=== PATIENT | male | born 1955 | race Caucasian/White ===

== ENCOUNTER 2019-10-26 21:09 | Emergency (ER) | payer BC ==
[2019-10-26 21:32] VITALS: TEMP 100.4
[2019-10-26] MEDS ORDERED: ACETAMINOPHEN TAB 500 MG TAB PO STA (21:34)
--- NOTE | 2019-10-26 21:41 | ED ---
General Adult HPI - General Chief complaint: Shortness of Breath Stated complaint: Diff Breathing Time Seen by Provider: 10/26/19 21:20 Source: patient, EMS, RN notes reviewed, old records reviewed Mode of arrival: EMS - History of Present Illness Initial comments: This is a 64-year-old male presents emergency Department complaining that there is been a one hour history of some shortness of breath. Patient states she bent down to tie her shoe when he stood up he was lightheaded very short of breath and felt weak. Patient denies any chest pain. Patient denies any palpitations. Patient denies any fever chills or cough. Patient states he has been quarantining himself with 3 other people the other people have gone out in the last 6 weeks do shopping but other than that no one is gone anywhere. Patient denies any abdominal pain patient denies nausea vomiting diarrhea. Patient denies any conjunctivae the symptoms. Patient denies any numbness or weakness patient does complain of a mild headache at this time. - Related Data Home Medications Medication Instructions Recorded Confirmed Aspirin [Aspirin EC] 1,000 mg PO ONCE 10/26/19 10/26/19 Allergies Allergy/AdvReac Type Severity Reaction Status Date / Time No Known Allergies Allergy Verified 10/26/19 22:09 Review of Systems ROS Statement: Those systems with pertinent positive or pertinent negative responses have been documented in the HPI. ROS Other: All systems not noted in ROS Statement are negative. Past Medical History Past Medical History: Hypertension History of Any Multi-Drug Resistant Organisms: None Reported Past Surgical History: Back Surgery Past Psychological History: Anxiety Smoking Status: Former smoker Past Alcohol Use History: Occasional Past Drug Use History: None Reported General Exam - General Exam Comments Initial Comments: GENERAL: Patient is well-developed and well-nourished. Patient is nontoxic and well- hydrated and is in mild distress. ENT: Neck is soft and supple. No significant lymphadenopathy is noted. Oropharynx is clear. Moist mucous membranes. Neck has full range of motion without eliciting any pain. EYES: The sclera were anicteric and conjunctiva were pink and moist. Extraocular movements were intact and pupils were equal round and reactive to light. Eyelids were unremarkable. PULMONARY: Unlabored respirations. Good breath sounds bilaterally. No audible rales rhonchi or wheezing was noted. CARDIOVASCULAR: Patient is tachycardic at 150 beats a minute ABDOMEN: Soft and nontender with normal bowel sounds. SKIN: Skin is clear with no lesions or rashes and otherwise unremarkable. NEUROLOGIC: Patient is alert and oriented 3 cranial nerves II through XII are grossly intact motor and sensory are also intact MUSCULOSKELETAL: Normal extremities with adequate strength and full range of motion. No lower extremity swelling or edema. No calf tenderness. LYMPHATICS: No significant lymphadenopathy is noted PSYCHIATRIC: Normal psychiatric evaluation. Course Vital Signs 10/26/19 10/26/19 21:18 22:40 Temperature 100.4 F H Pulse Rate 146 H 137 H Respiratory 20 22 Rate Blood Pressure 130/91 154/108 O2 Sat by Pulse 92 L 98 Oximetry Medical Decision Making - Medical Decision Making EKG shows sinus tachycardia at 140 bpm DE interval 222 QRS is 94 Q-T intervals 270 QTC is 436. Patient's EKG shows no ST segment elevation or depression. Patient does have Q waves inferiorly. CT chest shows a large saddle emboli. I started the patient on high-dose heparin. I spoke with [facility] they accepted the transfer I transfer the patient. - Lab Data Result diagrams: 10/26/19 21:30 10/26/19 21:30 Lab Results 10/26/19 10/26/19 10/26/19 Range/Units 21:30 21:30 21:30 WBC 13.7 H (3.8-10.6) k/uL RBC 5.21 (4.30-5.90) m/uL Hgb 15.3 (13.0-17.5) gm/dL Hct 46.6 (39.0-53.0) % MCV 89.6 (80.0-100.0) fL MCH 29.3 (25.0-35.0) pg MCHC 32.7 (31.0-37.0) g/dL RDW 13.0 (11.5-15.5) % Plt Count 225 (150-450) k/uL Neutrophils % 78 % Lymphocytes % 14 % Monocytes % 4 % Eosinophils % 2 % Basophils % 0 % Neutrophils # 10.7 H (1.3-7.7) k/uL Lymphocytes # 1.9 (1.0-4.8) k/uL Monocytes # 0.6 (0-1.0) k/uL Eosinophils # 0.2 (0-0.7) k/uL Basophils # 0.0 (0-0.2) k/uL PT 10.8 (9.0-12.0) sec INR 1.0 (<1.2) APTT 23.0 (22.0-30.0) sec D-Dimer 14.35 H (<0.60) mg/L FEU Sodium 140 (137-145) mmol/L Potassium 4.5 (3.5-5.1) mmol/L Chloride 102 (98-107) mmol/L Carbon Dioxide 26 (22-30) mmol/L Anion Gap 12 mmol/L BUN 16 (9-20) mg/dL Creatinine 1.03 (0.66-1.25) mg/dL Est GFR (CKD-EPI)AfAm 90 (>60 ml/min/1.73 sqM) Est GFR (CKD-EPI)NonAf 78 (>60 ml/min/1.73 sqM) Glucose 178 H (74-99) mg/dL Plasma Lactic Acid Allan (0.7-2.0) mmol/L Calcium 9.2 (8.4-10.2) mg/dL Magnesium 2.0 (1.6-2.3) mg/dL Total Bilirubin 0.4 (0.2-1.3) mg/dL AST 65 H (17-59) U/L ALT 67 H (4-49) U/L Alkaline Phosphatase 123 (38-126) U/L Lactate Dehydrogenase 634 H (313-618) U/L C-Reactive Protein 27.4 H (<10.0) mg/L Total Protein 7.8 (6.3-8.2) g/dL Albumin 4.3 (3.5-5.0) g/dL Coronavirus (PCR) (Not Detectd) Influenza Type A RNA (Not Detectd) Influenza Type B (PCR) (Not Detectd) 10/26/19 10/26/19 Range/Units 21:30 21:57 WBC (3.8-10.6) k/uL RBC (4.30-5.90) m/uL Hgb (13.0-17.5) gm/dL Hct (39.0-53.0) % MCV (80.0-100.0) fL MCH (25.0-35.0) pg MCHC (31.0-37.0) g/dL RDW (11.5-15.5) % Plt Count (150-450) k/uL Neutrophils % % Lymphocytes % % Monocytes % % Eosinophils % % Basophils % % Neutrophils # (1.3-7.7) k/uL Lymphocytes # (1.0-4.8) k/uL Monocytes # (0-1.0) k/uL Eosinophils # (0-0.7) k/uL Basophils # (0-0.2) k/uL PT (9.0-12.0) sec INR (<1.2) APTT (22.0-30.0) sec D-Dimer (<0.60) mg/L FEU Sodium (137-145) mmol/L Potassium (3.5-5.1) mmol/L Chloride (98-107) mmol/L Carbon Dioxide (22-30) mmol/L Anion Gap mmol/L BUN (9-20) mg/dL Creatinine (0.66-1.25) mg/dL Est GFR (CKD-EPI)AfAm (>60 ml/min/1.73 sqM) Est GFR (CKD-EPI)NonAf (>60 ml/min/1.73 sqM) Glucose (74-99) mg/dL Plasma Lactic Acid Allan 2.9 H* (0.7-2.0) mmol/L Calcium (8.4-10.2) mg/dL Magnesium (1.6-2.3) mg/dL Total Bilirubin (0.2-1.3) mg/dL AST (17-59) U/L ALT (4-49) U/L Alkaline Phosphatase (38-126) U/L Lactate Dehydrogenase (313-618) U/L C-Reactive Protein (<10.0) mg/L Total Protein (6.3-8.2) g/dL Albumin (3.5-5.0) g/dL Coronavirus (PCR) Not Detected (Not Detectd) Influenza Type A RNA Not Detected (Not Detectd) Influenza Type B (PCR) Not Detected (Not Detectd) Critical Care Time Critical Care Time: Yes Total Critical Care Time: 35 Disposition Clinical Impression: Pulmonary embolism Disposition: OTHER INSTITUTION NOT DEFINED Referrals: None,Stated [Primary Care Provider] - 1-2 days Time of Disposition: 22:59 - Out of Hospital Transfer - Req. Specs Out of Hospital Transfer - Requested Specifics: Other [facility] ([facility])
[2019-10-26 21:43] LABS: Basophils % (A) 0 %; Eosinophils # (A) 0.2 k/uL (0-0.7); Eosinophils % (A) 2 %; HCT 46.6 % (39.0-53.0); HGB 15.3 gm/dL (13.0-17.5); Lymphocytes # (A) 1.9 k/uL (1.0-4.8); Lymphocytes % (A) 14 %; MCH 29.3 pg (25.0-35.0); MCHC 32.7 g/dL (31.0-37.0); MCV 89.6 fL (80.0-100.0); Mean Platelet Volume 7.7; Monocytes # (A) 0.6 k/uL (0-1.0); Monocytes % (A) 4 %; Neutrophils # (A) 10.7 k/uL (1.3-7.7); Neutrophils % (A) 78 %; Platelet Count 225 k/uL (150-450); RBC 5.21 m/uL (4.30-5.90); WBC 13.7 k/uL (3.8-10.6)
[2019-10-26 21:55] LABS: Albumin 4.3 g/dL (3.5-5.0); C Reactive Protein 27.4 mg/L (<10.0); Calcium 9.2 mg/dL (8.4-10.2); Potassium 4.5 mmol/L (3.5-5.1); Total Bilirubin 0.4 mg/dL (0.2-1.3); Total Protein 7.8 g/dL (6.3-8.2)
[2019-10-26 22:01] LABS: Prothrombin Time 10.8 sec (9.0-12.0)
[2019-10-26 22:07] LABS: D-Dimer 14.35 mg/L FEU (<0.60)
--- NOTE | 2019-10-26 22:36 | XR ---
EXAMINATION TYPE: XR chest 1V portable DATE OF EXAM: 10/26/2019 COMPARISON: None INDICATION: Covid pneumonia suspected, short of breath fever TECHNIQUE: Single frontal view of the chest is obtained. FINDINGS: The heart size is normal. The pulmonary vasculature is normal. The lungs are clear. No suspicious peripheral consolidations are evident. No focal consolidations are identified. IMPRESSION: 1. No acute radiographic pulmonary process.
[2019-10-26] MEDS ORDERED: HEPARIN SODIUM,PORCINE 10,000 UNIT/ML 1 ML VIAL IV ONE (22:54)
--- NOTE | 2019-10-26 22:59 | CT ---
CT CHEST FOR PULMONARY EMBOLISM. EXAMINATION TYPE: CT chest angio for PE DATE OF EXAM: 10/26/2019 INDICATION: pE CT DLP: 838 mGycm, Automated exposure control for dose reduction was used. CONTRAST: Patient injected with 100 mL of Isovue 370. COMPARISON: None TECHNIQUE: CT of the chest is performed on a spiral scan at 2 mm thick sections. Study is performed with intravenous contrast timed for evaluation for pulmonary embolism. This will limit additional po rtions of the evaluation. FINDINGS: Large saddle embolus is present with extension in the proximal bilateral pulmonary arteries. There ma y be 2 individual strands crossing the bifurcation of the main pulmonary artery with large emboli obs tructing the proximal pulmonary branches bilaterally. Report was called to Dr. Campbell by Dr. Moran by telephone [id number] hours 10/26/2019. No mediastinal or hilar adenopathy enlarged by CT criteria is evident. The ascending aorta diameter at the level of the main pulmonary artery is 4.3 cm. The main pulmonary artery diameter at the bifur cation is 3.2 cm. Lung windows are clear. No suspicious infiltrates or groundglass opacities are identified. Limited CT section through the upper abdomen are unremarkable. IMPRESSIONS: 1. 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 2. Ascending thoracic aortic aneurysm measuring 4.3 cm.
[2019-10-26] MEDS ORDERED: HEPARIN SOD,PORK IN 0.45% NACL 25,000 UNIT in 0.45% NACL 1 250ML.BAG IV SCH (23:00)
[2019-10-26 23:26] VITALS: BP 133/104; PULSE 133; RESP 20
[2019-10-27 03:08] LABS: Ferritin 400.1 ng/mL (22.0-322.0)
== END 2019-10-26 23:32 | disposition other institution (70) ==
LOC: EC 21:09
DX: Z03.818 Encounter for observation for suspected exposure to other biological agents ruled out (principal); I26.92 Saddle embolus of pulmonary artery without acute cor pulmonale; I10 Essential (primary) hypertension; Z79.82 Long term (current) use of aspirin; Z87.891 Personal history of nicotine dependence
CPT/HCPCS: 36415; 93005; 85379; 80053; 82728; 83605; 83615; 83735; 85025; 85610; 85730; 86140; 87040; 87502; 84145; 87635; 71045; 71275; 99291; J1644 ×2; Q9967

== ENCOUNTER 2019-11-12 12:05 | Inpatient (IN) | payer BC ==
--- NOTE | 2019-11-12 12:43 | ED ---
General Adult HPI - General Chief complaint: Dizziness Stated complaint: headache/ears ringing Time Seen by Provider: 11/12/19 12:05 Source: patient, RN notes reviewed, old records reviewed Mode of arrival: ambulatory Limitations: no limitations - History of Present Illness Initial comments: This is a 64-year-old male who was recently diagnosed with a pulmonary embolism. Patient had the also has a DVT in his left leg he states that he is on Xarelto. Patient comes in today because ever since he was discharged from the hospital 2 weeks ago he has been getting intermittent headaches and when he gets those he becomes very dizzy. Patient states he also had some ringing in the ears since that occurred. Patient states the dizziness feels as though is off balance not like he is going to pass out. Patient also states that the dizziness sometimes seems to begin after he bends over to pick something up. Patient denies any chest pain or palpitations. Patient denies any shortness of breath or difficulty breathing. Patient denies any fever chills or cough. Patient denies any abdominal pain patient denies nausea vomiting diarrhea. Patient denies any leg swelling or calf tenderness - Related Data Home Medications Medication Instructions Recorded Confirmed Rivaroxaban [Xarelto Starter Pack] See Taper PO DIRECTED 11/12/19 11/12/19 Allergies Allergy/AdvReac Type Severity Reaction Status Date / Time No Known Allergies Allergy Verified 11/12/19 13:57 Review of Systems ROS Statement: Those systems with pertinent positive or pertinent negative responses have been documented in the HPI. ROS Other: All systems not noted in ROS Statement are negative. Past Medical History Past Medical History: Hypertension, Pulmonary Embolus (PE) History of Any Multi-Drug Resistant Organisms: None Reported Past Surgical History: Back Surgery Additional Past Surgical History / Comment(s): cervial fusion Past Psychological History: Anxiety Smoking Status: Former smoker Past Alcohol Use History: Occasional Past Drug Use History: None Reported General Exam - General Exam Comments Initial Comments: GENERAL: Patient is well-developed and well-nourished. Patient is nontoxic and well- hydrated and is in mild distress. ENT: Neck is soft and supple. No significant lymphadenopathy is noted. Oropharynx is clear. Moist mucous membranes. Neck has full range of motion without eliciting any pain. EYES: The sclera were anicteric and conjunctiva were pink and moist. Extraocular movements were intact and pupils were equal round and reactive to light. Eyelids were unremarkable. PULMONARY: Unlabored respirations. Good breath sounds bilaterally. No audible rales rhonchi or wheezing was noted. CARDIOVASCULAR: Patient is tachycardic at 110 bpm ABDOMEN: Soft and nontender with normal bowel sounds. No palpable organomegaly was noted. There is no palpable pulsatile mass. SKIN: Skin is clear with no lesions or rashes and otherwise unremarkable. NEUROLOGIC: Patient is alert and oriented x3. Cranial nerves II through XII are grossly intact. Motor and sensory are also intact. Normal speech, volume and content. Symmetrical smile. MUSCULOSKELETAL: Normal extremities with adequate strength and full range of motion. No lower extremity swelling or edema. No calf tenderness. LYMPHATICS: No significant lymphadenopathy is noted PSYCHIATRIC: Normal psychiatric evaluation. Limitations: no limitations Course Vital Signs 11/12/19 11/12/19 11/12/19 12:07 12:35 13:00 Temperature 98 F Pulse Rate 112 H 108 H 101 H Pulse Rate [ Sitting Visual Basic Programmer] Pulse Rate [ Standing Visual Basic Programmer ] Pulse Rate [ Supine Visual Basic Programmer] Respiratory 18 25 H 18 Rate Blood Pressure 150/107 141/91 Blood Pressure [Sitting] Blood Pressure [Standing] Blood Pressure [Supine] O2 Sat by Pulse 99 95 Oximetry 11/12/19 11/12/19 11/12/19 13:21 13:30 14:00 Temperature Pulse Rate 95 90 Pulse Rate [ 111 H Sitting Visual Basic Programmer] Pulse Rate [ 120 H Standing Visual Basic Programmer ] Pulse Rate [ 96 Supine Visual Basic Programmer] Respiratory 20 20 17 Rate Blood Pressure 111/85 122/84 Blood Pressure 104/84 [Sitting] Blood Pressure 111/85 [Standing] Blood Pressure 115/81 [Supine] O2 Sat by Pulse 95 95 Oximetry Medical Decision Making - Medical Decision Making EKG shows sinus tachycardia at 101 bpm NM interval 252 QRS is 94 QT interval 346 QTC is 448. EKG shows no ST segment elevation or depression CT of the brain shows no acute abnormality. I will begin to reevaluate the patient he states he just had another one of his severe headaches which is not completely gone but much improved compared to where it was a little while ago. I spoke with Dr. Oviedo he agreed to admit the patient admitted the patient wro te admitting orders. - Lab Data Result diagrams: 11/12/19 12:50 11/12/19 12:50 Lab Results 05/04/2311/12/19 11/12/19 Range/Units 12:50 12:50 12:50 WBC 7.7 (3.8-10.6) k/uL RBC 5.56 (4.30-5.90) m/uL Hgb 16.0 (13.0-17.5) gm/dL Hct 48.8 (39.0-53.0) % MCV 87.8 (80.0-100.0) fL MCH 28.8 (25.0-35.0) pg MCHC 32.8 (31.0-37.0) g/dL RDW 13.0 (11.5-15.5) % Plt Count 234 (150-450) k/uL Neutrophils % 75 % Lymphocytes % 17 % Monocytes % 5 % Eosinophils % 1 % Basophils % 0 % Neutrophils # 5.8 (1.3-7.7) k/uL Lymphocytes # 1.3 (1.0-4.8) k/uL Monocytes # 0.4 (0-1.0) k/uL Eosinophils # 0.1 (0-0.7) k/uL Basophils # 0.0 (0-0.2) k/uL PT 12.6 H (9.0-12.0) sec INR 1.2 H (<1.2) APTT 29.3 (22.0-30.0) sec Sodium 139 (137-145) mmol/L Potassium 4.3 (3.5-5.1) mmol/L Chloride 104 (98-107) mmol/L Carbon Dioxide 24 (22-30) mmol/L Anion Gap 11 mmol/L BUN 13 (9-20) mg/dL Creatinine 0.91 (0.66-1.25) mg/dL Est GFR (CKD-EPI)AfAm >90 (>60 ml/min/1.73 sqM) Est GFR (CKD-EPI)NonAf >90 (>60 ml/min/1.73 sqM) Glucose 123 H (74-99) mg/dL Calcium 9.6 (8.4-10.2) mg/dL Magnesium 2.0 (1.6-2.3) mg/dL Total Bilirubin 0.7 (0.2-1.3) mg/dL AST 28 (17-59) U/L ALT 33 (4-49) U/L Alkaline Phosphatase 102 (38-126) U/L Troponin I (0.000-0.034) ng/mL Total Protein 8.2 (6.3-8.2) g/dL Albumin 4.3 (3.5-5.0) g/dL 11/12/19 Range/Units 12:50 WBC (3.8-10.6) k/uL RBC (4.30-5.90) m/uL Hgb (13.0-17.5) gm/dL Hct (39.0-53.0) % MCV (80.0-100.0) fL MCH (25.0-35.0) pg MCHC (31.0-37.0) g/dL RDW (11.5-15.5) % Plt Count (150-450) k/uL Neutrophils % % Lymphocytes % % Monocytes % % Eosinophils % % Basophils % % Neutrophils # (1.3-7.7) k/uL Lymphocytes # (1.0-4.8) k/uL Monocytes # (0-1.0) k/uL Eosinophils # (0-0.7) k/uL Basophils # (0-0.2) k/uL PT (9.0-12.0) sec INR (<1.2) APTT (22.0-30.0) sec Sodium (137-145) mmol/L Potassium (3.5-5.1) mmol/L Chloride (98-107) mmol/L Carbon Dioxide (22-30) mmol/L Anion Gap mmol/L BUN (9-20) mg/dL Creatinine (0.66-1.25) mg/dL Est GFR (CKD-EPI)AfAm (>60 ml/min/1.73 sqM) Est GFR (CKD-EPI)NonAf (>60 ml/min/1.73 sqM) Glucose (74-99) mg/dL Calcium (8.4-10.2) mg/dL Magnesium (1.6-2.3) mg/dL Total Bilirubin (0.2-1.3) mg/dL AST (17-59) U/L ALT (4-49) U/L Alkaline Phosphatase (38-126) U/L Troponin I <0.012 (0.000-0.034) ng/mL Total Protein (6.3-8.2) g/dL Albumin (3.5-5.0) g/dL Disposition Clinical Impression: Dizziness, Intermittent headache Disposition: ADMITTED IP TO THIS HOSP Referrals: None,Stated [Primary Care Provider] - 1-2 days Time of Disposition: 14:45
--- NOTE | 2019-11-12 13:04 | CT ---
EXAMINATION TYPE: CT brain wo con DATE OF EXAM: 11/12/2019 COMPARISON: NONE HISTORY: headache, dizziness CT DLP: 1099.4 mGycm Automated exposure control for dose reduction was used. FINDINGS: Central structures are midline. There is no evidence of hydrocephalus. No acute focal lesion, mass ef fect or midline shift is seen. I do not see evidence of intracranial blood Visualized portions of the paranasal sinuses and mastoids are clear. The bony calvarium is intact. IMPRESSION: NO ACUTE INTRACRANIAL ABNORMALITY.
[2019-11-12 13:15] LABS: Basophils % (A) 0 %; Eosinophils # (A) 0.1 k/uL (0-0.7); Eosinophils % (A) 1 %; HCT 48.8 % (39.0-53.0); Lymphocytes # (A) 1.3 k/uL (1.0-4.8); Lymphocytes % (A) 17 %; MCH 28.8 pg (25.0-35.0); MCHC 32.8 g/dL (31.0-37.0); MCV 87.8 fL (80.0-100.0); Monocytes # (A) 0.4 k/uL (0-1.0); Monocytes % (A) 5 %; Neutrophils # (A) 5.8 k/uL (1.3-7.7); Neutrophils % (A) 75 %; Platelet Count 234 k/uL (150-450); RBC 5.56 m/uL (4.30-5.90); WBC 7.7 k/uL (3.8-10.6)
[2019-11-12 13:27] LABS: ALT 33 U/L (4-49); AST 28 U/L (17-59); African American GFR (CKD) >90 (>60 ml/min/1.73 sqM); Albumin 4.3 g/dL (3.5-5.0); Alkaline Phosphatase 102 U/L (38-126); Anion Gap 11 mmol/L; Blood Urea Nitrogen 13 mg/dL (9-20); Calcium 9.6 mg/dL (8.4-10.2); Carbon Dioxide 24 mmol/L (22-30); Chloride 104 mmol/L (98-107); Glucose 123 mg/dL (74-99); INR 1.2 (<1.2); Non-African American GFR(CKD) >90 (>60 ml/min/1.73 sqM); Partial Thromboplastin Time 29.3 sec (22.0-30.0); Potassium 4.3 mmol/L (3.5-5.1); Prothrombin Time 12.6 sec (9.0-12.0); Sodium 139 mmol/L (137-145); Total Bilirubin 0.7 mg/dL (0.2-1.3); Total Protein 8.2 g/dL (6.3-8.2)
[2019-11-12] MEDS ORDERED: MECLIZINE 25 MG TAB PO STA (13:53)
[2019-11-12] MEDS ORDERED: SODIUM CHLORIDE 0.9% 1,000 ML IV STA (13:57)
[2019-11-12] MEDS ORDERED: SODIUM CHLORIDE 0.9% 1,000 ML IV ONE (14:45)
[2019-11-12] MEDS ORDERED: MECLIZINE 25 MG TAB PO PRN (14:47)
--- NOTE | 2019-11-12 15:38 | P.HPIM ---
History of Present Illness H&P Date: 11/12/19 Chief Complaint: Dizziness Patient is a 64-year-old male with a known history of recently diagnosed saddle pulmonary embolism in the ER and was sent to [facility] about 2 weeks ago where he had clot extraction, currently on anticoagulation with starter pack of xarelto came to ER with complaints of dizziness and lightheadedness. Ever since he he was sent home she has been having dizziness and not feeling well. She has been having headaches and also bleeding in the years and sometimes tingling in sensation in the feet. His symptoms gets worse when he is bending over. No complaints of chest pain or shortness of breath. Denied palpitations. No leg swelling. Patient states that dizziness feels like he is losing balance and going to pass out. Dizziness sometimes begins after bending over to pick something. Denied any fever or chills. No cough or sputum production. No nausea vomiting or abdominal pain. No diarrhea. No Tenderness. Patient has been taking xarelto since his discharge from hospital. Patient says that she was told that she was hypertensive during hospital admission recently but currently not any antihypertensives. EKG showed sinus tachycardia with incomplete right bundle branch block. CT head showed no acute intracranial abnormality. Orthostatic vitals negative. Patient did have tachycardia with heart rate went up to 120s with standing. Troponin 1 negative Review of Systems Constitutional: Patient denies any fever or chills . No generalized weakness or weight loss. Abdomen: Patient denied nausea vomiting and diarrhea and abdominal pain. Cardiovascular: Patient denies any chest pain or short of breath no palpitations. Respiratory: patient denied any cough is from production. No shortness of breath Neurologic: Patient denied any numbness or tingling. Patient does have dizziness and headache and ringing ears. Musculoskeletal: Patient denies any complaints of joint swelling or deformity. Skin: Negative Psychiatric: Negative Endocrine: No heat or cold intolerance. No recent weight gain. Genitourinary: No dysuria or hematuria. All other 14 point ROS negative except the above Past Medical History Past Medical History: Hypertension, Pulmonary Embolus (PE) History of Any Multi-Drug Resistant Organisms: None Reported Past Surgical History: Back Surgery Additional Past Surgical History / Comment(s): cervial fusion Past Psychological History: Anxiety Smoking Status: Former smoker Past Alcohol Use History: Occasional Past Drug Use History: None Reported Medications and Allergies Home Medications Medication Instructions Recorded Confirmed Type Rivaroxaban [Xarelto Starter Pack] See Taper PO DIRECTED 11/12/19 11/12/19 History Allergies Allergy/AdvReac Type Severity Reaction Status Date / Time No Known Allergies Allergy Verified 11/12/19 13:57 Physical Exam Vitals: Vital Signs Temp Pulse Pulse Pulse Pulse Resp BP 11/12/19 14:00 90 17 122/84 11/12/19 13:30 95 20 111/85 11/12/19 13:21 111 H 120 H 96 20 11/12/19 13:00 101 H 18 141/91 11/12/19 12:35 108 H 25 H 11/12/19 12:07 98 F 112 H 18 150/107 BP BP BP Pulse Ox 11/12/19 14:00 95 11/12/19 13:30 95 11/12/19 13:21 104/84 111/85 115/81 11/12/19 13:00 95 11/12/19 12:35 11/12/19 12:07 99 Intake and Output 11/12/19 11/12/19 11/12/19 06:59 14:59 22:59 Other: Weight 126.552 kg PHYSICAL EXAMINATION: Patient is lying in the bed comfortably, no acute distress, awake alert and oriented.. HEENT: Normocephalic. Neck is supple. Pupils reactive. Nostrils clear. Oral cavity is moist. Ears reveal no drainage. Neck reveals no JVD, carotid bruits, or thyromegaly. CHEST EXAMINATION: Trachea is central. Symmetrical expansion. Lung morton clear to auscultation and percussion. CARDIAC: Normal S1, S2 with no gallops. No murmurs ABDOMEN: Soft. Bowel sounds normal. No organomegaly. No abdominal bruits. Extremities: reveal no edema. No clubbing or cyanosis Neurologically awake, alert, oriented x3 with well-coordinated movements. No focal deficits noted Skin: No rash or skin lesions. Psychiatric: Coperative. Nonsuicidal Musculoskeletal: No joint swelling or deformity. Normal range of motion. Results CBC & Chem 7: 11/12/19 12:50 11/12/19 12:50 Labs: Abnormal Lab Results - Last 24 Hours (Table) 11/12/19 11/12/19 Range/Units 12:50 12:50 PT 12.6 H (9.0-12.0) sec INR 1.2 H (<1.2) Glucose 123 H (74-99) mg/dL Thrombosis Risk Factor Assmnt - DVT/VTE Prophylaxis DVT/VTE Prophylaxis: Pharmacologic Prophylaxis ordered Assessment and Plan Assessment: Dizziness and headache with postural tachycardia Recent saddle pulmonary embolus status post extraction at [facility]. History of neck surgery Hypertension recent diagnosis. Currently not on any medications. Anxiety Previous history of smoking DVT prophylaxis patient is already on xarelto. Plan: Patient will be continued on gentle hydration. Continue with telemetry monitoring. Troponin [address] head showed no acute intracranial process. Cardiology and neurology will be consulted. Further recommendations based on the clinical course. Continue with anticoagulation to xarelto, 15 mg twice a day for 3 weeks followed by 20 mg daily. Time with Patient: Greater than 30
--- NOTE | 2019-11-12 16:43 | XR ---
EXAMINATION TYPE: XR chest 1V DATE OF EXAM: 11/12/2019 COMPARISON: Prior chest x-ray 10/26/2019 HISTORY: Cardiomegaly TECHNIQUE: Single frontal view of the chest is obtained. FINDINGS: There is no focal air space opacity, pleural effusion, or pneumothorax seen. The cardiac silhouette size is stable. The osseous structures are intact, postop changes again noted at these l ower cervical spine. Persistent elevation of the right hemidiaphragm noted. IMPRESSION: No acute process.
[2019-11-12] MEDS: RIVAROXABAN 15 MG TAB PO SCH (17:27)
[2019-11-13] MEDS: RIVAROXABAN 15 MG TAB PO SCH ×2 (07:47→17:11)
--- NOTE | 2019-11-13 11:12 | P.CRDCN ---
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 He follows in the office with Dr. Bolanos. We have been asked to see in consultation for dizziness. He states he has experiencing intermittent headaches and dizziness for the previous 2 weeks. The dizziness is exacerbated by bending over. On October 26, 2019 he was diagnosed with a saddle PE and transferred to [facility] where EKOS was used and xarelto was initiated on discharge. He denies chest pain, shortness of breath or palpitations. Orthostatic blood pressures checked and unremarkable. DIAGNOSTICS EKG reveals sinus tachycardia with right bundle branch block. Telemetry tracings unremarkable. Chest xray negative for an acute cardiopulmonary process. CT brain unremarkable for acute intracranial process. Laboratory reviewed, CBC unremarkable, INR 1.2, sodium 139, potssium 4.3, creatinine 0.91, magnesium 2.0, cardiac enzymes negative x1 and COVD negative. REVIEW OF SYSTEMS At the time of my exam: CONSTITUTIONAL: Denies fever or chills. CARDIOVASCULAR: Denies chest pain, shortness of breath, orthopnea, PND or palpitations. RESPIRATORY: Denies cough. GASTROINTESTINAL: Denies abdominal pain, diarrhea, constipation, nausea or vomiting. MUSCULOSKELETAL: Denies myalgias. NEUROLOGIC: Denies numbness, tingling or weakness. ENDOCRINE: Denies fatigue, weight change, polydipsia or polyurina. GENITOURINARY: Denies burning, hematuria or urgency with micturation. HEMATOLOGIC: Denies history of anemia or bleeding. PHYSICAL EXAMINATION Blood pressure 134/83 heart rate 75 afebrile and maintaining oxygen saturation on room air. CONSTITUTIONAL: No apparent distress. HEENT: Head is normocephalic. Pupils are equal, round. Sclerae anicteric. Mucous membranes of the mouth are moist. No JVD. No carotid bruit. CHEST EXAMINATION: Lungs are clear to auscultation. No chest wall tenderness is noted on palpation or with deep breathing. HEART EXAMINATION: Regular rate and rhythm. S1, S2 heard. No murmurs, gallops or rub. ABDOMEN: Soft, nontender. Positive bowel sounds. EXTREMITIES: 2+ peripheral pulses, no lower extremity edema and no calf tenderness. NEUROLOGIC EXAMINATION: Patient is awake, alert and oriented x3. ASSESSMENT Dizziness suggestive of vertigo History of recent saddle PE s/p EKOS Former nicotine dependence PLAN Continue antivert as previously ordered. He is feeling some improvement in his symptoms since admission. Neurology evaluation pending. No orthostatic changes or evidence of an acute arrhythmia. Thank you kindly for this consultation. Nurse Practitioner note has been reviewed, I agree with a documented findings and plan of care. Patient was seen and examined. Past Medical History Past Medical History: Hypertension, Pulmonary Embolus (PE) History of Any Multi-Drug Resistant Organisms: None Reported Past Surgical History: Back Surgery Additional Past Surgical History / Comment(s): cervial fusion Past Anesthesia/Blood Transfusion Reactions: No Reported Reaction Past Psychological History: Anxiety Smoking Status: Former smoker Past Alcohol Use History: Occasional Past Drug Use History: None Reported - Past Family History Mother Family Medical History: Coronary Artery Disease (CAD), Diabetes Mellitus, Hypertension Medications and Allergies Home Medications Medication Instructions Recorded Confirmed Type Rivaroxaban [Xarelto Starter Pack] See Taper PO DIRECTED 11/12/19 11/12/19 History Allergies Allergy/AdvReac Type Severity Reaction Status Date / Time No Known Allergies Allergy Verified 11/12/19 13:57 Physical Exam Vitals: Vital Signs Temp Pulse Pulse Pulse Pulse Pulse Resp 11/13/19 07:35 97.7 F 75 16 11/13/19 04:33 74 20 11/13/19 02:15 98.3 F 71 20 11/12/19 19:35 98.3 F 82 20 11/12/19 16:00 104 H 18 11/12/19 15:51 98.0 F 104 H 18 11/12/19 15:40 98.0 F 94 18 11/12/19 14:00 90 17 11/12/19 13:30 95 20 11/12/19 13:21 111 H 120 H 96 20 11/12/19 13:00 101 H 18 11/12/19 12:35 108 H 25 H 11/12/19 12:07 98 F 112 H 18 BP BP BP BP BP BP BP 11/13/19 07:35 134/83 11/13/19 04:33 107/72 114/81 125/79 11/13/19 02:15 142/81 11/12/19 19:35 147/90 11/12/19 16:00 11/12/19 15:51 151/95 11/12/19 15:40 136/78 11/12/19 14:00 122/84 11/12/19 13:30 111/85 11/12/19 13:21 104/84 111/85 11/12/19 13:00 141/91 11/12/19 12:35 11/12/19 12:07 150/107 BP Pulse Ox 11/13/19 07:35 96 11/13/19 04:33 97 11/13/19 02:15 95 11/12/19 19:35 94 L 11/12/19 16:00 11/12/19 15:51 98 11/12/19 15:40 98 11/12/19 14:00 95 11/12/19 13:30 95 11/12/19 13:21 115/81 11/12/19 13:00 95 11/12/19 12:35 11/12/19 12:07 99 Intake and Output 11/12/19 11/13/19 11/13/19 22:59 06:59 14:59 Intake Total 200 Balance 200 Intake: Oral 200 Other: Voiding Method Toilet Toilet # Voids 2 2 1 Weight 126.552 kg Results 11/12/19 12:50 11/12/19 12:50 Cardiac Enzymes 11/12/19 11/12/19 Range/Units 12:50 12:50 AST 28 (17-59) U/L Troponin I <0.012 (0.000-0.034) ng/mL Coagulation 11/12/19 Range/Units 12:50 PT 12.6 H (9.0-12.0) sec APTT 29.3 (22.0-30.0) sec CBC 11/12/19 Range/Units 12:50 WBC 7.7 (3.8-10.6) k/uL RBC 5.56 (4.30-5.90) m/uL Hgb 16.0 (13.0-17.5) gm/dL Hct 48.8 (39.0-53.0) % Plt Count 234 (150-450) k/uL Comprehensive Metabolic Panel 11/12/19 Range/Units 12:50 Sodium 139 (137-145) mmol/L Potassium 4.3 (3.5-5.1) mmol/L Chloride 104 (98-107) mmol/L Carbon Dioxide 24 (22-30) mmol/L BUN 13 (9-20) mg/dL Creatinine 0.91 (0.66-1.25) mg/dL Glucose 123 H (74-99) mg/dL Calcium 9.6 (8.4-10.2) mg/dL AST 28 (17-59) U/L ALT 33 (4-49) U/L Alkaline Phosphatase 102 (38-126) U/L Total Protein 8.2 (6.3-8.2) g/dL Albumin 4.3 (3.5-5.0) g/dL Current Medications Generic Name Dose Route Start Last Admin Trade Name Freq PRN Reason Stop Dose Admin Meclizine HCl 25 mg 11/12/19 14:47 Antivert PO TID PRN Vertigo Rivaroxaban 15 mg 11/12/19 17:30 11/13/19 07:47 Xarelto PO 11/17/19 17:31 15 mg BID-W/MEALS BRUCE Administration Rivaroxaban 20 mg 11/18/19 17:30 11/12/19 16:46 Xarelto PO 20 mg W/SUPPER BRUCE Administration Intake and Output 11/12/19 11/13/19 11/13/19 22:59 06:59 14:59 Intake Total 200 Balance 200 Intake: Oral 200 Other: Voiding Method Toilet Toilet # Voids 2 2 1 Weight 126.552 kg 11/12/19 12:50 11/12/19 12:50
--- NOTE | 2019-11-13 15:55 | P.CNNES ---
History of Present Illness Consult date: 11/13/19 Requesting physician: Katarina Oviedo Reason for Consult: Dizziness History of Present Illness: Patient is a 64-year-old male, who was recently admitted to the hospital on 10/26/2019 for a saddle embolus, for which she was transferred to [facility], patient was given thrombolytic, and discharged home on 10/28/2019. Patient states that after he was discharged, he was feeling generalized weakness. About couple days after he was discharged, he started having episodes of dizziness and headache. 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 Or if he is laying in the bed, and gets up, gets dizzy. It lasts until he sits down. Yesterday he woke up, and noticed had bad pounding global headache with tinnitus generalized weakness dizziness and vertigo. He forced himself to take shower. As the dizziness and headache persisted, he decided to come to the ER. Denies any numbness or tingling. It lasted all day. The headache is global. No nausea or vomiting, light or noise sensitivity. Patient denies any history of migraines. The headache and dizziness comes together. CT head showed no acute intracranial abnormality. I reviewed computed tomography scan of the head. All visualized paranasal sinuses are completely clear. External auditory canals appears very clear with no excessive cerumen. EKG shows sinus tachycardia, incomplete right bundle branch block. Left anterior fascicular block. Chest x-ray showed no acute process. CBC and CMP are normal. Cummings virus PCR negative. Patient had a CTA of chest on 10/26/2019, which revealed saddle embolism with obstruction of proximal bi lateral pulmonary arteries. Patient is on Xarelto. Patient has history of cervical surgery at [facility] in 2018. After that he had constant numbness of the index and middle finger of the left hand. Patient denies diabetes. He has hypertension. He has smoked 1 pack per day for 15 years, quit 25 years ago. Positive family history of diabetes. He is retired from [employer]. Patient denies any upper respiratory infection. Today he is noticing some dizziness. Patient denies any slurred speech, facial droop, blurred vision, diplopia. No numbness or tingling or weakness of the extremities. Review of Systems As mentioned above in detail. All other 14 point of review of systems unremarkable. No chest pain shortness of breath wheezing or cough. No abdominal pain nausea vomiting diarrhea. Past Medical History Past Medical History: Hypertension, Pulmonary Embolus (PE) History of Any Multi-Drug Resistant Organisms: None Reported Past Surgical History: Back Surgery Additional Past Surgical History / Comment(s): cervial fusion Past Anesthesia/Blood Transfusion Reactions: No Reported Reaction Past Psychological History: Anxiety Smoking Status: Former smoker Past Alcohol Use History: Occasional Past Drug Use History: None Reported - Past Family History Mother Family Medical History: Coronary Artery Disease (CAD), Diabetes Mellitus, Hypertension Medications and Allergies Home Medications Medication Instructions Recorded Confirmed Type Rivaroxaban [Xarelto Starter Pack] See Taper PO DIRECTED 11/12/19 11/12/19 History Allergies Allergy/AdvReac Type Severity Reaction Status Date / Time No Known Allergies Allergy Verified 11/12/19 13:57 Physical Examination - Vital Signs Vital Signs: Vital Signs Temp Pulse Pulse Pulse Pulse Pulse Resp 11/13/19 07:35 97.7 F 75 16 11/13/19 04:33 74 20 11/13/19 02:15 98.3 F 71 20 11/12/19 19:35 98.3 F 82 20 11/12/19 16:00 104 H 18 11/12/19 15:51 98.0 F 104 H 18 11/12/19 15:40 98.0 F 94 18 11/12/19 14:00 90 17 11/12/19 13:30 95 20 11/12/19 13:21 111 H 120 H 96 20 11/12/19 13:00 101 H 18 11/12/19 12:35 108 H 25 H 11/12/19 12:07 98 F 112 H 18 BP BP BP BP BP BP BP 11/13/19 07:35 134/83 11/13/19 04:33 107/72 114/81 125/79 11/13/19 02:15 142/81 11/12/19 19:35 147/90 11/12/19 16:00 11/12/19 15:51 151/95 11/12/19 15:40 136/78 11/12/19 14:00 122/84 11/12/19 13:30 111/85 11/12/19 13:21 104/84 111/85 11/12/19 13:00 141/91 11/12/19 12:35 11/12/19 12:07 150/107 BP Pulse Ox 11/13/19 07:35 96 11/13/19 04:33 97 11/13/19 02:15 95 11/12/19 19:35 94 L 11/12/19 16:00 11/12/19 15:51 98 11/12/19 15:40 98 11/12/19 14:00 95 11/12/19 13:30 95 11/12/19 13:21 115/81 11/12/19 13:00 95 11/12/19 12:35 11/12/19 12:07 99 Intake and Output 11/12/19 11/13/19 11/13/19 22:59 06:59 14:59 Intake Total 200 Balance 200 Intake: Oral 200 Other: Voiding Method Toilet Toilet # Voids 2 2 1 Weight 126.552 kg Patient's vitals were checked, and his supine blood pressure 1:15/81, pulse rate 92. Sitting was 104/84 with pulse of 90 and standing up 111/85 pulse of 93. There is no carotid bruit, S1 and S2 audible. His mental status, speech and language functions are normal. Attention, concentration and fund of knowledge is adequate. On cranial nerve examination, pupils are round and reactive to light, visual morton are full, extraocular muscles are intact with no nystagmus. Face is symmetric, tongue protrudes the midline. Palatal elevation and sensation normal. Hearing and shoulder shrug normal. On muscle strength testing, there is no pronator drift and the strength is normal in arms and legs distally and proximally. Reflexes are 2 in the upper limbs, 1 at the ankles and plantars downgoing bilaterally. Sensory touch is equal. No ataxia for [id number] or [id number] testing. Tone and bulk of muscles normal. Gait deferred. Abdomen is soft nontender, chest is clear. Results TSH is normal 2.18. CRP 27.4 liver functions normal. - Laboratory Findings CBC and BMP: 11/12/19 12:50 11/12/19 12:50 Abnormal Lab Findings: Abnormal Labs 11/12/19 11/12/19 12:50 12:50 PT 12.6 H INR 1.2 H Glucose 123 H Assessment and Plan Assessment: * 64-year-old male admitted with intermittent episodes of headaches, vertigo, mainly occurring on changing his head or body position, either looking/bending down, or getting up. Orthostatics were negative. Symptoms suggestive of possible BPPV. Current neurological examination and computed tomography scan of the head are normal. * Recent history of saddle pulmonary embolism, DVT, on anticoagulation. * Hypertension * X tobacco use. Plan: * We will check carotid Doppler to rule out carotid stenosis and a 2-D echo with bubble study to rule out any embolic source. Patient is already on Xarelto. * If the symptoms persist, consider vestibular rehabilitation. * Meclizine use sparingly. * We will check B12, folate
--- NOTE | 2019-11-13 17:01 | US ---
EXAMINATION TYPE: US carotid duplex BILAT DATE OF EXAM: 11/13/2019 COMPARISON: NONE CLINICAL HISTORY: Agree current headache, vertigo, rule out TIA. Headaches, dizziness, exam done port able. EXAM MEASUREMENTS: RIGHT: Peak Systolic Velocity (PSV) cm/sec ----- Right CCA: 63.2 ----- Right ICA: 58.1 ----- Right ECA: 75.6 ICA/CCA ratio: 0.9 RIGHT: End Diastole cm/sec ----- Right CCA: 15.7 ----- Right ICA: 18.0 ----- Right ECA: 11.0 LEFT: Peak Systolic Velocity (PSV) cm/sec ----- Left CCA: 66.8 ----- Left ICA: 57.9 ----- Left ECA: 92.1 ICA/CCA ratio: 0.9 LEFT: End Diastole cm/sec ----- Left CCA: 18.8 ----- Left ICA: 24.7 ----- Left ECA: 14.0 VERTEBRALS (direction of flow): Right Vertebral: Antegrade Left Vertebral: Antegrade Rhythm: Normal Grayscale images show mild to minimal eccentric plaque bilateral carotid bulb level. Velocity measure ments of ratios remain within normal limits in the visualized portion of both internal carotid arteri es. IMPRESSION: No hemodynamically significant stenosis seen in either internal carotid artery. Criteria for Assigning % of Stenosis / Diameter reduction (Estimation based on the indirect measurements of the internal carotid artery velocities (ICA PSV). 1. Normal (no stenosis)=ICA PSV < 125 cm/s: ratio < 2.0: ICA EDV<40 cm/s. 2. Less than 50% stenosis=ICA PSV < 125 cm/s: ratio < 2.0: ICA EDV<40 cm/s. 3. 50 to 69% stenosis=ICA PSV of 125 to 230 cm/s: ration 2.0 ? 4.0: ICA EDV 40-100 cm/s. 4. Greater than 70% stenosis to near occlusion= ICA PSV > 230 cm/s: ratio > 4.0: ICA EDV > 100 cm/s. 5. Near occlusion= ICA PSV velocities may be low or undetectable: variable ratio and ICA EDV. 6. Total occlusion=unable to detect flow.
--- NOTE | 2019-11-13 23:27 | P.PN ---
Subjective Progress Note Date: 11/13/19 Principal diagnosis: Dizziness and vertigo Patient is a 64-year-old male with a known history of recently diagnosed saddle pulmonary embolism in the ER and was sent to [facility] about 2 weeks ago where he had clot extraction, currently on anticoagulation with starter pack of xarelto came to ER with complaints of dizziness and lightheadedness. Ever since he he was sent home she has been having dizziness and not feeling well. She has been having headaches and also bleeding in the years and sometimes tingling in sensation in the feet. His symptoms gets worse when he is bending over. No complaints of chest pain or shortness of breath. Denied palpitations. No leg swelling. Patient states that dizziness feels like he is losing balance and going to pass out. Dizziness sometimes begins after bending over to pick something. Denied any fever or chills. No cough or sputum production. No nausea vomiting or abdominal pain. No diarrhea. No Tenderness. Patient has been taking xarelto since his discharge from hospital. Patient says that she was told that she was hypertensive during hospital admission recently but currently not any antihypertensives. EKG showed sinus tachycardia with incomplete right bundle branch block. CT head showed no acute intracranial abnormality. Orthostatic vitals negative. Patient did have tachycardia with heart rate went up to 120s with standing. Troponin 1 negative 11/13/2019 Patient is currently lying in the bed. Still complains of dizziness with getting up but improved compared to yesterday. Patient is being continued on meclizine as needed. Seen by neurology and cardiology. 2-D echocardiogram and carotid duplex was ordered to rule out embolic source. Patient is already on anticoagulation with xarelto. Patient had saddle pulmonary embolus 2 weeks ago. Patient does have a stay of hyper homocystinemia. B12 and Folate levels were ordered. Orthostatics negative. Tachycardia impro sara. Current medications reviewed. Objective - Vital Signs Vital signs: Vital Signs Temp 97.7 F 11/13/19 07:35 Pulse 75 11/13/19 07:35 Resp 16 11/13/19 07:35 BP 134/83 11/13/19 07:35 Pulse Ox 96 11/13/19 07:35 Intake & Output 11/12/19 11/13/19 11/13/19 18:59 06:59 18:59 Intake Total 200 Balance 200 Weight 126.552 kg Intake: Oral 200 Other: Voiding Method Toilet Toilet # Voids 2 1 - Exam PHYSICAL EXAMINATION: Patient is lying in the bed comfortably, no acute distress, awake alert and oriented.. HEENT: Normocephalic. Neck is supple. Pupils reactive. Nostrils clear. Oral cavity is moist. Ears reveal no drainage. Neck reveals no JVD, carotid bruits, or thyromegaly. CHEST EXAMINATION: Trachea is central. Symmetrical expansion. Lung morton clear to auscultation and percussion. CARDIAC: Normal S1, S2 with no gallops. No murmurs ABDOMEN: Soft. Bowel sounds normal. No organomegaly. No abdominal bruits. Extremities: reveal no edema. No clubbing or cyanosis Neurologically awake, alert, oriented x3 with well-coordinated movements. No focal deficits noted Skin: No rash or skin lesions. Psychiatric: Coperative. Nonsuicidal Musculoskeletal: No joint swelling or deformity. Normal range of motion. - Labs CBC & Chem 7: 11/12/19 12:50 11/12/19 12:50 Assessment and Plan Assessment: Dizziness and headache with postural tachycardia vs benign positional vertigo. Recent saddle pulmonary embolus status post extraction at [facility]. Family History of hyper-homocystinemia History of neck surgery Hypertension recent diagnosis. Currently not on any medications. Anxiety Previous history of smoking DVT prophylaxis patient is already on xarelto. Plan: Patient will be continued on gentle hydration. Continue with telemetry m onitoring. Troponin [address] head showed no acute intracranial process. Cardiology and neurology is following. 2-D echocardiogram and carotid duplex were ordered. Will check B12 and folate levels. Further recommendations based on the clinical course. Continue with anticoagulation to xarelto, 15 mg twice a day for 3 weeks followed by 20 mg daily. Time with Patient: Greater than 30
[2019-11-14 02:27] LABS: Folate, Serum 14.9 ng/mL
[2019-11-14] MEDS: RIVAROXABAN 15 MG TAB PO SCH ×2 (07:12→17:22)
--- NOTE | 2019-11-14 10:13 | ECHOF ---
Referral Reason:Agree current headache, vertigo, rule out TIA MEASUREMENTS -------- HEIGHT: 182.9 cm WEIGHT: 126.6 kg BP: RVIDd: 2.9 cm (< 3.3) IVSd: 1.4 cm (0.6 - 1.1) LVIDd: 3.2 cm (3.9 - 5.3) LVPWd: 1.4 cm (0.6 - 1.1) IVSs: 1.6 cm LVIDs: 2.4 cm LVPWs: 1.7 cm MV E Lucho: 0.71 m/s MV DecT: 158 ms MV A Lucho: 0.82 m/s MV E/A Ratio: 0.87 RAP: 5.00 mmHg RVSP: 10.90 mmHg FINDINGS -------- Sinus rhythm. This was a technically difficult study with suboptimal views. The left ventricular size is normal. There is moderate concentric left ventricular hypertrophy. O verall left ventricular systolic function is normal with, an EF between 55 - 60 %. The right ventricle is normal in size. The left atrial size is normal. The right atrial size is normal. Lumason used Unable to perform bubblr study due to poor suboptimal images. The aortic valve is trileaflet and appears structurally normal. The mitral valve is normal. There is trace mitral regurgitation. The tricuspid valve appears structurally normal. Trace tricuspid regurgitation present. Right rod tricular systolic pressure is normal at < 35 mmHg. There is no pulmonic regurgitation present. The aortic root size is normal. IVC Not well visulized. There is no pericardial effusion. CONCLUSIONS -------- 1. Sinus rhythm. 2. This was a technically difficult study with suboptimal views. 3. The left ventricular size is normal. 4. There is moderate concentric left ventricular hypertrophy. 5. Overall left ventricular systolic function is normal with, an EF between 55 - 60 %. 6. The right ventricle is normal in size. 7. The left atrial size is normal. 8. The right atrial size is normal. 9. Lumason used 10. Unable to perform bubblr study due to poor suboptimal images. 11. The aortic valve is trileaflet and appears structurally normal. 12. The mitral valve is normal. 13. There is trace mitral regurgitation. 14. The tricuspid valve appears structurally normal. 15. Trace tricuspid regurgitation present. 16. Right ventricular systolic pressure is normal at < 35 mmHg. 17. There is no pulmonic regurgitation present. 18. The aortic root size is normal. 19. IVC Not well visulized. 20. There is no pericardial effusion. SEISMIC OBSERVER: Anastasia Ford RDCS
--- NOTE | 2019-11-14 11:49 | P.PN ---
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 He follows in the office with Dr. Bolanos. He is seen and examined resting comfortably laying flat in bed in no acute distress. He states he woke up around 0400 to use the restroom and upon standing he felt acutely dizzy like the room was spinning. He was given an antivert and slowly his symptoms have improved. Orthostatic vital signs obtained continue to be unremarkable. Blood pressure this morning 148/85 heart rate 94 afebrile maintaining oxygen saturation on room air. Carotid doppler negative for significant stenosis. Telemetry tracings reveal sinus tachycardia, no arrhythmia noted. TSH 2.18. PHYSICAL EXAMINATION CONSTITUTIONAL: No apparent distress. HEENT: Head is normocephalic. Pupils are equal, round. Sclerae anicteric. Mucous membranes of the mouth are moist. No JVD. No carotid bruit. CHEST EXAMINATION: Lungs are clear to auscultation. No chest wall tenderness is noted on palpation or with deep breathing. HEART EXAMINATION: Regular rate and rhythm. S1, S2 heard. No murmurs, gallops or rub. EXTREMITIES: 2+ peripheral pulses, no lower extremity edema and no calf tenderness. ASSESSMENT Dizziness suggestive of vertigo History of recent saddle PE s/p EKOS Former nicotine dependence PLAN Use antivert scheduled around the clock. If dizziness improves he can be discharged home this afternoon. Nurse Practitioner note has been reviewed, I agree with a documented findings and plan of care. Patient was seen and examined. Objective - Vital Signs Vital signs: Vital Signs Temp 98.4 F 11/14/19 07:06 Pulse 94 11/14/19 07:06 Resp 16 11/14/19 07:06 BP 148/85 11/14/19 07:06 Pulse Ox 96 11/14/19 07:06 Intake & Output 11/13/19 11/14/19 11/14/19 18:59 06:59 18:59 Intake Total 240 Balance 240 Intake: Oral 240 Other: Voiding Method Toilet Toilet # Voids 1 1 - Labs CBC & Chem 7: 11/12/19 12:50 11/12/19 12:50
[2019-11-14] MEDS: SODIUM CHLORIDE 0.9% 1,000 ML IV SCH ×2 (14:49→20:24)
[2019-11-14] MEDS: MECLIZINE 25 MG TAB PO SCH ×2 (15:00→20:24)
--- NOTE | 2019-11-14 15:54 | P.PN ---
Subjective Progress Note Date: 11/14/19 Patient was seen for a follow-up. Patient states his symptoms have improved since he started meclizine. No new focal symptoms. Objective - Vital Signs Vital signs: Vital Signs Temp 98.9 F 11/14/19 15:29 Pulse 106 H 11/14/19 15:29 Resp 16 11/14/19 15:29 BP 137/85 11/14/19 15:29 Pulse Ox 96 11/14/19 15:29 Intake & Output 11/13/19 11/14/19 11/14/19 18:59 06:59 18:59 Intake Total 420 Balance 420 Intake: Oral 420 Other: Voiding Method Toilet Toilet # Voids 1 1 - Exam Patient's mental status, speech and language functions are normal. Cranial nerves are normal. Muscle strength normal. No ataxia. Cerebellar functions normal. - Labs CBC & Chem 7: 11/12/19 12:50 11/12/19 12:50 Assessment and Plan Assessment: * Recurrent episodes of positional vertigo and headaches. Probable BPPV. Current neurological examination and computed tomography scan of the head are normal. * Recent history of saddle pulmonary embolism, DVT, on anticoagulation. * Hypertension * X tobacco use. Plan: * Carotid Doppler showed no carotid stenosis. Antegrade flow in both vertebral arteries. * 2-D echo showed sinus rhythm. Moderate concentric LVH. EF is 55-60%. Left atrial size is normal. Bubble study could not be performed. * Patient's symptoms have much improved since started using meclizine. * If the symptoms persist, consider vestibular rehabilitation. * B12 level is borderline 321. Folate 14.9, TSH 2.180. We will give B12 shot. * Consider Medrol Dosepak. * Neurologically clear if patient's symptoms have stabilized/resolved.
[2019-11-14] MEDS ORDERED: CYANOCOBALAMIN 1,000 MCG/ML 1 ML VIAL IM ONE (16:00)
[2019-11-14] MEDS: predniSONE 20 MG TAB PO SCH (17:22)
[2019-11-15] MEDS: SODIUM CHLORIDE 0.9% 1,000 ML IV SCH (03:56)
[2019-11-15 07:33] VITALS: RESP 16
[2019-11-15] MEDS: MECLIZINE 25 MG TAB PO SCH (07:33)
[2019-11-15] MEDS: predniSONE 20 MG TAB PO SCH (07:33)
[2019-11-15] MEDS: RIVAROXABAN 15 MG TAB PO SCH (07:33)
[2019-11-15 08:31] VITALS: BP 174/88; PULSE 110; TEMP 97.7
[2019-11-15] MEDS: METOPROLOL TARTRATE 25 MG TAB PO SCH ×2 (09:39→09:41)
--- NOTE | 2019-11-15 09:51 | P.PN ---
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 He follows in the office with Dr. Bolanos. He is seen and examined resting comfortably laying flat in bed in no acute distress. He states overall compared to yesterday he is feeling much better. He has had no further symptoms of dizziness. His heart rates have continued to be on the higher side with one episode of atrial tachycardia. Blood pressures are unremarkable for orthostatic changes. Echocardiogram obtained reveals preserved LV systolic function with ejection fraction 55-60%, moderate concentric left ventricular hypertrophy, right ventricle and atrium are normal size. Laboratory data reviewed, magnesium 2.1. PHYSICAL EXAMINATION Blood pressure 153/86 heart rate 110 afebrile and maintaining oxygen saturation on room air. CONSTITUTIONAL: No apparent distress. HEENT: Head is normocephalic. Pupils are equal, round. Sclerae anicteric. Mucous membranes of the mouth are moist. No JVD. No carotid bruit. CHEST EXAMINATION: Lungs are clear to auscultation. No chest wall tenderness is noted on palpation or with deep breathing. HEART EXAMINATION: Regular rate and rhythm. S1, S2 heard. No murmurs, gallops or rub. EXTREMITIES: 2+ peripheral pulses, no lower extremity edema and no calf tenderness. ASSESSMENT Dizziness suggestive of vertigo History of recent saddle PE s/p EKOS Former nicotine dependence PLAN Continue antivert around the clock. Initiate lopressor 25 mg daily for PAT and hypertension management. Stable for discharge from a cardiac perspective. Follow in the office with Dr. Bolanos upon discharge. Have recommended outpatient monitor once beta mariah initiated. Nurse Practitioner note has been reviewed, I agree with a documented findings and plan of care. Patient was seen and examined. Objective - Vital Signs Vital signs: Vital Signs Temp 97.7 F 11/15/19 08:29 Pulse 110 H 11/15/19 08:29 Resp 16 11/15/19 08:29 BP 174/88 11/15/19 08:29 Pulse Ox 98 11/15/19 08:29 Intake & Output 11/14/19 11/15/19 11/15/19 18:59 06:59 18:59 Intake Total 660 Balance 660 Intake: Oral 660 Other: Voiding Method Toilet Toilet # Voids 1 2 - Labs CBC & Chem 7: 11/12/19 12:50 11/12/19 12:50
[2019-11-16] MEDS ORDERED: predniSONE 10 MG TAB PO SCH (09:00)
[2019-11-18] MEDS ORDERED: RIVAROXABAN 20 MG TAB PO SCH (17:30)
== END 2019-11-15 14:26 | disposition home or self-care (01) | DRG 149 ==
LOC: EC 12:05 → 4SSUR 14:55 → OBSVTOIN 11-15 07:28
PROVIDERS: ADMIT Internal Medicine; ATTEND Internal Medicine
DX: H81.10 Benign paroxysmal vertigo, unspecified ear (principal); I45.2 Bifascicular block; I47.1 Supraventricular tachycardia; F41.9 Anxiety disorder, unspecified; H93.19 Tinnitus, unspecified ear; I10 Essential (primary) hypertension; G89.29 Other chronic pain; M54.2 Cervicalgia; R51 Headache; Z11.59 Encounter for screening for other viral diseases; Z79.01 Long term (current) use of anticoagulants; Z98.1 Arthrodesis status; Z87.891 Personal history of nicotine dependence; Z86.711 Personal history of pulmonary embolism; Z86.718 Personal history of other venous thrombosis and embolism; Z82.49 Family history of ischemic heart disease and other diseases of the circulatory system; Z83.3 Family history of diabetes mellitus
CPT/HCPCS: 36415; 70450; 71045; 80053; 82607; 82746; 83735; 84443; 84484; 85025; 85610; 85730; 87635; 93005; 93306; 93880; 96360; 96361; 99285

== ENCOUNTER → 2019-12-13 | Outpatient (CLI) | payer BC ==
[2019-12-14 04:37] LABS: African American GFR (CKD) 82.9 (60.0-200.0); Albumin 4.6 g/dL (3.80-4.90); Albumin/Globulin Ratio 1.59 (1.60-3.17); Anion Gap 6.3 mmol/L (4.00-12.00); BUN/Creat Ratio 11.82 Ratio (12.00-20.00); Calcium 9.7 mg/dL (8.7-10.3); Carbon Dioxide 29.7 mmol/L (21.6-31.8); Chol/HDL Ratio 4.23; Globulin 2.9 g/dL (1.6-3.3); Non-African American GFR(CKD) 71.6 (60.0-200.0); Potassium 4.7 mmol/L (3.5-5.5); Total Bilirubin 0.7 mg/dL (0.2-1.2); Total Protein 7.5 g/dL (6.2-8.2)
== END | disposition home or self-care (01) ==
LOC: LABWHC1 13:03
PROVIDERS: ATTEND Internal Medicine Interventional Cardiology
DX: R06.00 Dyspnea, unspecified (principal)
CPT/HCPCS: 36415; 80053; 80061

== ENCOUNTER 2020-01-27 19:59 | Observation (INO) | payer BC ==
--- NOTE | 2020-01-27 20:28 | ED ---
General Adult HPI - General Chief complaint: Shortness of Breath Stated complaint: SOB, leg numbness, chest pain Time Seen by Provider: 01/27/20 20:12 Source: patient, family, RN notes reviewed, old records reviewed Mode of arrival: ambulatory Limitations: no limitations - History of Present Illness Initial comments: 64-year-old male with history of urinary embolism this year currently on Xarelto, presenting for evaluation of chest pressure and dyspnea. Patient states his symptoms have been ongoing for the past several days. He has had exertional dyspnea. Denies fever or significant cough. Denies URI symptoms. States this feels exactly like his pulmonary embolism from several months ago. He did undergo endovascular procedure at an outside hospital. He has been taking his medication as prescribed. Patient was told that he did have a DVT also. - Related Data Home Medications Medication Instructions Recorded Confirmed Rivaroxaban [Xarelto Starter Pack] See Taper PO DIRECTED 11/12/19 11/12/19 Previous Rx's Medication Instructions Recorded Meclizine [Antivert] 25 mg PO TID PRN #30 tab 11/15/19 Metoprolol Tartrate [Lopressor] 25 mg PO DAILY #90 tab 11/15/19 predniSONE See Taper PO DAILY #6 tab 11/15/19 Allergies Allergy/AdvReac Type Severity Reaction Status Date / Time No Known Allergies Allergy Verified 01/27/20 20:14 Review of Systems ROS Statement: Those systems with pertinent positive or pertinent negative responses have been documented in the HPI. ROS Other: All systems not noted in ROS Statement are negative. Past Medical History Past Medical History: Hypertension, Pulmonary Embolus (PE) History of Any Multi-Drug Resistant Organisms: None Reported Past Surgical History: Back Surgery Additional Past Surgical History / Comment(s): cervial fusion Past Anesthesia/Blood Transfusion Reactions: No Reported Reaction Past Psychological History: Anxiety Smoking Status: Former smoker Past Alcohol Use History: Occasional Past Drug Use History: None Reported - Past Family History Mother Family Medical History: Coronary Artery Disease (CAD), Diabetes Mellitus, Hypertension General Exam Limitations: no limitations General appearance: alert, in no apparent distress Head exam: Present: atraumatic, normocephalic Eye exam: Present: normal appearance, PERRL ENT exam: Present: normal exam Neck exam: Present: normal inspection. Absent: tenderness, meningismus Respiratory exam: Present: normal lung sounds bilaterally. Absent: respiratory distress, wheezes Cardiovascular Exam: Present: regular rate, normal rhythm GI/Abdominal exam: Present: soft. Absent: distended, tenderness, guarding Extremities exam: Present: normal capillary refill. Absent: pedal edema Neurological exam: Present: alert, oriented X3, CN II-XII intact. Absent: motor sensory deficit Psychiatric exam: Present: normal affect, normal mood Skin exam: Present: warm, dry, intact. Absent: cyanosis, diaphoretic Course Vital Signs 01/27/20 01/27/20 01/27/20 20:12 20:22 21:30 Temperature 98.6 F Pulse Rate 105 H 81 Respiratory 18 18 18 Rate Blood Pressure 144/90 145/91 O2 Sat by Pulse 97 97 Oximetry EKG Findings - EKG Comments: EKG Findings:: EKG: Sinus rhythm with PVC, left anterior fascicular block, LVH, no ST segment elevation, rate of 97, CT interval 150, QRS duration 88, QTC 449, similar compared to previous in November 2019 Medical Decision Making - Medical Decision Making 64-year-old male presenting with dyspnea and chest tightness. EKG is sinus rhythm with no ST segment elevation. Chest x-ray negative for focal pneumonia, no pneumothorax. I did perform CT angiography given this patient's significant history of saddle pulmonary embolism. There is no new emboli, there is chronic distal emboli. He has a normal CBC, normal CMP, negative troponin. He will be kept in observation for serial cardiac enzymes, telemetry, echo, cardiology consultation, case is discussed with Dr. Hobson who will admit. - Lab Data Result diagrams: 01/27/20 20:10 01/27/20 20:10 Lab Results 01/27/20 01/27/20 01/27/20 Range/Units 20:10 20:10 20:10 WBC 9.9 (3.8-10.6) k/uL RBC 5.34 (4.30-5.90) m/uL Hgb 15.1 (13.0-17.5) gm/dL Hct 46.0 (39.0-53.0) % MCV 86.1 D (80.0-100.0) fL MCH 28.2 (25.0-35.0) pg MCHC 32.8 (31.0-37.0) g/dL RDW 13.4 (11.5-15.5) % Plt Count 227 (150-450) k/uL Neutrophils % 69 % Lymphocytes % 22 % Monocytes % 5 % Eosinophils % 2 % Basophils % 0 % Neutrophils # 6.9 (1.3-7.7) k/uL Lymphocytes # 2.1 (1.0-4.8) k/uL Monocytes # 0.5 (0-1.0) k/uL Eosinophils # 0.2 (0-0.7) k/uL Basophils # 0.0 (0-0.2) k/uL PT (9.0-12.0) sec INR (<1.2) APTT (22.0-30.0) sec Sodium 139 (137-145) mmol/L Potassium 4.1 (3.5-5.1) mmol/L Chloride 104 (98-107) mmol/L Carbon Dioxide 23 (22-30) mmol/L Anion Gap 12 mmol/L BUN 16 (9-20) mg/dL Creatinine 0.96 (0.66-1.25) mg/dL Est GFR (CKD-EPI)AfAm >90 (>60 ml/min/1.73 sqM) Est GFR (CKD-EPI)NonAf 85 (>60 ml/min/1.73 sqM) Glucose 120 H (74-99) mg/dL Plasma Lactic Acid Allan 1.6 (0.7-2.0) mmol/L Calcium 9.4 (8.4-10.2) mg/dL Magnesium 1.9 (1.6-2.3) mg/dL Total Bilirubin 0.7 (0.2-1.3) mg/dL AST 29 (17-59) U/L ALT 23 (4-49) U/L Alkaline Phosphatase 111 (38-126) U/L Troponin I (0.000-0.034) ng/mL Total Protein 7.8 (6.3-8.2) g/dL Albumin 4.4 (3.5-5.0) g/dL 01/27/20 01/27/20 Range/Units 20:10 20:21 WBC (3.8-10.6) k/uL RBC (4.30-5.90) m/uL Hgb (13.0-17.5) gm/dL Hct (39.0-53.0) % MCV (80.0-100.0) fL MCH (25.0-35.0) pg MCHC (31.0-37.0) g/dL RDW (11.5-15.5) % Plt Count (150-450) k/uL Neutrophils % % Lymphocytes % % Monocytes % % Eosinophils % % Basophils % % Neutrophils # (1.3-7.7) k/uL Lymphocytes # (1.0-4.8) k/uL Monocytes # (0-1.0) k/uL Eosinophils # (0-0.7) k/uL Basophils # (0-0.2) k/uL PT 12.3 H (9.0-12.0) sec INR 1.2 H (<1.2) APTT 29.9 (22.0-30.0) sec Sodium (137-145) mmol/L Potassium (3.5-5.1) mmol/L Chloride (98-107) mmol/L Carbon Dioxide (22-30) mmol/L Anion Gap mmol/L BUN (9-20) mg/dL Creatinine (0.66-1.25) mg/dL Est GFR (CKD-EPI)AfAm (>60 ml/min/1.73 sqM) Est GFR (CKD-EPI)NonAf (>60 ml/min/1.73 sqM) Glucose (74-99) mg/dL Plasma Lactic Acid Allan (0.7-2.0) mmol/L Calcium (8.4-10.2) mg/dL Magnesium (1.6-2.3) mg/dL Total Bilirubin (0.2-1.3) mg/dL AST (17-59) U/L ALT (4-49) U/L Alkaline Phosphatase (38-126) U/L Troponin I <0.012 (0.000-0.034) ng/mL Total Protein (6.3-8.2) g/dL Albumin (3.5-5.0) g/dL Disposition Clinical Impression: Dyspnea, Chest pain, Pulmonary embolism Disposition: ADMITTED IP TO THIS [facility] Condition: Stable Is patient prescribed a controlled substance at d/c from ED?: No Referrals: Jayden Hobson MD [Primary Care Provider] - 1-2 days Decision to Admit Reason: Admit from EC Decision Date: 01/27/20 Decision Time: 22:08
[2020-01-27 20:36] LABS: Basophils % (A) 0 %; Eosinophils # (A) 0.2 k/uL (0-0.7); Eosinophils % (A) 2 %; HGB 15.1 gm/dL (13.0-17.5); Lymphocytes # (A) 2.1 k/uL (1.0-4.8); Lymphocytes % (A) 22 %; MCH 28.2 pg (25.0-35.0); MCHC 32.8 g/dL (31.0-37.0); Mean Platelet Volume 7.5; Monocytes # (A) 0.5 k/uL (0-1.0); Monocytes % (A) 5 %; Neutrophils # (A) 6.9 k/uL (1.3-7.7); Neutrophils % (A) 69 %; Platelet Count 227 k/uL (150-450); RBC 5.34 m/uL (4.30-5.90); RDW 13.4 % (11.5-15.5); WBC 9.9 k/uL (3.8-10.6)
[2020-01-27 20:51] LABS: INR 1.2 (<1.2); Partial Thromboplastin Time 29.9 sec (22.0-30.0); Prothrombin Time 12.3 sec (9.0-12.0)
[2020-01-27 20:56] LABS: MCV 86.1 fL (80.0-100.0)
[2020-01-27 21:02] LABS: ALT 23 U/L (4-49); AST 29 U/L (17-59); African American GFR (CKD) >90 (>60 ml/min/1.73 sqM); Albumin 4.4 g/dL (3.5-5.0); Alkaline Phosphatase 111 U/L (38-126); Anion Gap 12 mmol/L; Blood Urea Nitrogen 16 mg/dL (9-20); Calcium 9.4 mg/dL (8.4-10.2); Carbon Dioxide 23 mmol/L (22-30); Chloride 104 mmol/L (98-107); Glucose 120 mg/dL (74-99); Magnesium 1.9 mg/dL (1.6-2.3); Non-African American GFR(CKD) 85 (>60 ml/min/1.73 sqM); Potassium 4.1 mmol/L (3.5-5.1); Sodium 139 mmol/L (137-145); Total Bilirubin 0.7 mg/dL (0.2-1.3); Total Protein 7.8 g/dL (6.3-8.2)
--- NOTE | 2020-01-27 21:47 | CT ---
EXAMINATION TYPE: CT angio chest DATE OF EXAM: 01/27/2020 COMPARISON: 10/26/2019 HISTORY: Chest pressure. History of PE. CT DLP: 726.6 mGycm Automated exposure control for dose reduction was used. CONTRAST: Performed with IV Contrast, patient injected with 100 mL of Isovue 370. There are 3-D post processed images. There is mild subsegmental atelectasis at the lung bases. There is no pleural effusion. There is no p ericardial effusion. Heart size is normal. There are no hilar masses. There is no mediastinal adenopa thy. Thoracic aorta is intact. There is no aneurysm or dissection. There is small linear filling defects in the right lower lobe pulmonary artery. Bony thorax is intact . Upper abdominal soft tissues are intact. IMPRESSION: There is small embolism in the right lower lobe pulmonary artery that appears chronic. The emboli are significantly reduced compared to old exam which shows extensive large bilateral emboli. No evidence of any new pulmonary embolism.
--- NOTE | 2020-01-27 21:50 | XR ---
EXAMINATION TYPE: XR chest 1V portable DATE OF EXAM: 01/27/2020 COMPARISON: 11/12/2019 HISTORY: Difficulty breathing TECHNIQUE: FINDINGS: There is no heart failure nor confluent pneumonic infiltrate. Heart size is normal. Costoph renic angles are clear. There are chest leads. IMPRESSION: No active cardiopulmonary disease. There is clearing of some minimal atelectasis left low er lobe compared to old exam.
[2020-01-27] MEDS ORDERED: NALOXONE 0.4 MG/ML 1 ML VIAL IV PRN (22:03)
[2020-01-27] MEDS ORDERED: ACETAMINOPHEN TAB 325 MG TAB PO PRN (22:03)
[2020-01-28] MEDS ORDERED: METOPROLOL TARTRATE 25 MG TAB PO SCH (09:00)
--- NOTE | 2020-01-28 10:20 | P.CRDCN ---
History of Present Illness Consult date: 01/28/20 Consult reason: chest pain, shortness of breath History of present illness: The patient is a pleasant 64-year-old male with past medical history of saddle pulmonary embolism on 10/26/2019, prior smoker, hypertension, and chronic back pain who follows with Dr. Bolanos in the office. We have been asked for consultation for chest discomfort and shortness of breath. The patient states he has been dealing with chest pain and shortness of breath on and off since his pulmonary embolism in October. The current episode which brought him to the [facility], he states was after he lifted his kayak. He states it was a squeezing-like sensation, which limited his ability to take in a deep breath. He also reports numbness which radiated down his legs. He states this episode was closely related to his initial episode in October. DIAGNOSTICS: Chest x-ray shows minimal atelectasis in the left lower lobe. No acute process. Computed tomography scan of the chest shows chronic lower lobe pulmonary emboli. Large saddle PE's have resolved. EKG shows sinus rhythm with left anterior fascicular block Echocardiogram from 11/2019 shows normal LV function with moderate LVH Labs reviewed: CBC unremarkable; electrolytes, kidney, and liver function within normal limits; troponins negative 3 PAST MEDICAL HISTORY: Saddle pulmonary emboli, former smoker, hypertension, chronic back pain REVIEW OF SYSTEMS: No fever or chills. No cough or expectoration. No diaphoresis. Patient denies headache, dizziness, blurred vision, double vision. Patient denies any stomach discomfort. No nausea, vomiting. No hematochezia. No hematemesis. Denies any black stools or blood in his stools. Denies dysuria or hematuria. No muscle weakness or numbness. No current chest discomfort. No shortness of breath resting comfortably in bed PHYSICAL EXAMINATION: This is a 64-year-old male in no apparent distress at the time of my examination. HEENT: Head is atraumatic, normocephalic. Pupils are equal, round. Sclerae anicteric. Conjunctivae are clear. Mucous membranes of the mouth are moist. Neck is supple. There is no jugular venous distention. No carotid bruit is heard. CHEST EXAMINATION: Lungs are clear to auscultation. No chest wall tenderness is noted on palpation or with deep breathing. HEART EXAMINATION: Heart regular rate and rhythm. S1, S2 heard. No murmurs, gallops or rub. ABDOMEN: Soft, nontender. Bowel sounds are heard. No organomegaly noted. EXTREMITIES: 2+ peripheral pulses with no evidence of peripheral edema and no calf tenderness noted. NEUROLOGIC EXAMINATION: Patient is awake, alert and oriented x3. VITALS: Blood pressure 124/79, SpO2 98% on room air, respiratory rate 18, pulse 74, afebrile FINAL ASSESSMENT AND PLAN: #1 chest discomfort, atypical, recent normal stress test #2 pulmonary emboli, chronic, on Xarelto #3 hypertension, controlled #4 hx chronic back pain #5 former smoker PLAN: We will continue anticoagulation, however consideration should be made to switch to Eliquis as his symptoms are so closely related to his initial pulmonary emboli. He may be having small refractory emboli. Continue with echocardiogram in the morning. Past Medical History Past Medical History: Hypertension, Pulmonary Embolus (PE) History of Any Multi-Drug Resistant Organisms: None Reported Past Surgical History: Back Surgery Additional Past Surgical History / Comment(s): cervial fusion Past Anesthesia/Blood Transfusion Reactions: No Reported Reaction Past Psychological History: Anxiety Smoking Status: Former smoker Past Alcohol Use History: Occasional Past Drug Use History: None Reported - Past Family History Mother Family Medical History: Coronary Artery Disease (CAD), Diabetes Mellitus, Hypertension Medications and Allergies Home Medications Medication Instructions Recorded Confirmed Type Metoprolol Tartrate [Lopressor] 25 mg PO BID 01/27/20 01/27/20 History Rivaroxaban [Xarelto] 20 mg PO DAILY 01/27/20 01/27/20 History Allergies Allergy/AdvReac Type Severity Reaction Status Date / Time No Known Allergies Allergy Verified 01/27/20 22:30 Physical Exam Vitals: Vital Signs Temp Pulse Pulse Resp BP BP Pulse Ox 01/28/20 03:00 97.6 F 74 18 124/79 98 01/28/20 00:00 98.1 F 87 18 148/97 98 01/27/20 22:43 99.0 F 76 18 154/83 97 01/27/20 21:30 81 18 145/91 97 01/27/20 20:22 18 01/27/20 20:12 98.6 F 105 H 18 144/90 97 Intake and Output 01/27/20 01/28/20 01/28/20 22:59 06:59 14:59 Other: Voiding Method Toilet # Voids 1 Weight 122.924 kg Results 01/27/20 20:10 01/27/20 20:10 Cardiac Enzymes 01/27/20 01/27/20 01/27/20 Range/Units 20:10 20:10 23:36 AST 29 (17-59) U/L Troponin I <0.012 <0.012 (0.000-0.034) ng/mL 01/28/20 Range/Units 02:59 AST (17-59) U/L Troponin I <0.012 (0.000-0.034) ng/mL Coagulation 01/27/20 Range/Units 20:21 PT 12.3 H (9.0-12.0) sec APTT 29.9 (22.0-30.0) sec CBC 01/27/20 Range/Units 20:10 WBC 9.9 (3.8-10.6) k/uL RBC 5.34 (4.30-5.90) m/uL Hgb 15.1 (13.0-17.5) gm/dL Hct 46.0 (39.0-53.0) % Plt Count 227 (150-450) k/uL Comprehensive Metabolic Panel 01/27/20 Range/Units 20:10 Sodium 139 (137-145) mmol/L Potassium 4.1 (3.5-5.1) mmol/L Chloride 104 (98-107) mmol/L Carbon Dioxide 23 (22-30) mmol/L BUN 16 (9-20) mg/dL Creatinine 0.96 (0.66-1.25) mg/dL Glucose 120 H (74-99) mg/dL Calcium 9.4 (8.4-10.2) mg/dL AST 29 (17-59) U/L ALT 23 (4-49) U/L Alkaline Phosphatase 111 (38-126) U/L Total Protein 7.8 (6.3-8.2) g/dL Albumin 4.4 (3.5-5.0) g/dL Current Medications Generic Name Dose Route Start Last Admin Trade Name Freq PRN Reason Stop Dose Admin Acetaminophen 650 mg 01/27/20 22:03 Tylenol Tab PO Q6HR PRN Mild Pain or Fever > 100.5 Metoprolol Tartrate 25 mg 01/28/20 09:00 01/28/20 08:53 Lopressor PO 25 mg DAILY BRUCE Administration Naloxone HCl 0.2 mg 01/27/20 22:03 Narcan IV Q2M PRN Opioid Reversal Rivaroxaban 20 mg 01/28/20 17:30 Xarelto PO W/SUPPER BRUCE Intake and Output 01/27/20 01/28/20 01/28/20 22:59 06:59 14:59 Other: Voiding Method Toilet # Voids 1 Weight 122.924 kg 01/27/20 20:10 01/27/20 20:10
[2020-01-28] MEDS: ASPIRIN 81 MG PO SCH (11:24)
--- NOTE | 2020-01-28 12:09 | P.HPIM ---
History of Present Illness H&P Date: 01/28/20 Chief Complaint: Chest pain or shortness breath. 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 Bolanos and regular basis he underwent a recent stress test back in December 2019 and that came back negative for any stress-induced ischemia, he also did have an echocardiogram back pain that was normal ejection fraction without any acute abnormalities, patient was cleaning his cardiac yesterday with cleaning the [employer] department and he was lifting the cardiac from one side to the other when he suddenly developed to have a squeezing sensation of the chest associated with significant shortness of breath. 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 Review of Systems Constitutional: Reports chronic pain, Denies fatigue, Denies lethargy, Denies weakness, Denies weight gain Eyes: denies blurred vision, denies bulging eye, denies decreased vision Ears: deny: decreased hearing Ears, nose, mouth and throat: Denies dysphagia, Denies neck lump, Denies sore throat Cardiovascular: Reports chest pain, Reports decreased exercise tolerance, Reports dyspnea on exertion, Reports shortness of breath, Denies lightheadedness, Denies rapid heart beat, Denies syncope Respiratory: Reports pleurisy, Denies congestion, Denies cough with sputum, Denies home oxygen, Denies pain, Denies sleep apnea, Denies snoring, Denies wheezing Gastrointestinal: Denies abdominal pain, Denies BRBPR, Denies change in bowel h abits, Denies heartburn, Denies loss of appetite, Denies melena, Denies nausea, Denies vomiting Genitourinary: Denies dysuria Musculoskeletal: Reports low back pain, Reports neck pain Musculoskeletal: absent: ankle pain, ankle stiffness, ankle swelling, elbow pain, elbow stiffness, elbow swelling, foot pain, foot stiffness, foot swelling, hand pain, hand stiffness, hand swelling, hip pain, hip stiffness, hip swelling, knee pain, knee stiffness, knee swelling, shoulder pain, shoulder stiffness, shoulder swelling, wrist pain, wrist stiffness, wrist swelling Integumentary: Denies pruritus, Denies rash Neurological: Denies numbness, Denies weakness Psychiatric: Reports anxiety, Denies depression Endocrine: Denies fatigue, Denies weight change Past Medical History Past Medical History: Hypertension, Pulmonary Embolus (PE) History of Any Multi-Drug Resistant Organisms: None Reported Past Surgical History: Back Surgery Additional Past Surgical History / Comment(s): cervial fusion Past Anesthesia/Blood Transfusion Reactions: No Reported Reaction Past Psychological History: Anxiety Smoking Status: Former smoker Past Alcohol Use History: Occasional Past Drug Use History: None Reported - Past Family History Mother Family Medical History: Coronary Artery Disease (CAD), Diabetes Mellitus, Hypertension Medications and Allergies Home Medications Medication Instructions Recorded Confirmed Type Metoprolol Tartrate [Lopressor] 25 mg PO BID 01/27/20 01/27/20 History Rivaroxaban [Xarelto] 20 mg PO DAILY 01/27/20 01/27/20 History Allergies Allergy/AdvReac Type Severity Reaction Status Date / Time No Known Allergies Allergy Verified 01/27/20 22:30 Physical Exam Vitals: Vital Signs Temp Pulse Pulse Resp BP BP Pulse Ox 01/28/20 09:00 97.9 F 67 18 136/81 98 01/28/20 03:00 97.6 F 74 18 124/79 98 01/28/20 00:00 98.1 F 87 18 148/97 98 01/27/20 22:43 99.0 F 76 18 154/83 97 01/27/20 21:30 81 18 145/91 97 01/27/20 20:22 18 01/27/20 20:12 98.6 F 105 H 18 144/90 97 Intake and Output 01/27/20 01/28/20 01/28/20 22:59 06:59 14:59 Other: Voiding Method Toilet Toilet # Voids 1 Weight 122.924 kg Physical examination: HEENT: Head is atraumatic, normocephalic, pupils were equal round reactive to light and accommodation, extraocular muscle movement were intact. Neck: Supple, no JVP, no carotid bruit. Chest: Clear to auscultation bilaterally there is no crackles no wheezes no chest wall tenderness no intercostal retractions. Heart: First heart sound is depressed, second heart sounds normal, there is no gallop or murmur. Abdomen: Soft nontender nondistended positive bowel sounds. Extremities: There is no edema no calf tenderness, dorsalis pedis +2 carlos aterally. Neurologic examination: Patient is awake alert and oriented 3, cranial nerves III-12 appear grossly intact, muscle power 4 out of 5 in upper and lower extremity bilaterally, deep tendon reflexes were normal. Results CBC & Chem 7: 01/27/20 20:10 01/27/20 20:10 Labs: Abnormal Lab Results - Last 24 Hours (Table) 01/27/20 01/27/20 Range/Units 20:10 20:21 PT 12.3 H (9.0-12.0) sec INR 1.2 H (<1.2) Glucose 120 H (74-99) mg/dL Thrombosis Risk Factor Assmnt - DVT/VTE Prophylaxis DVT/VTE Prophylaxis: Pharmacologic Prophylaxis ordered - Choose All That Apply Each Factor Represents 1 point: Obesity (BMI >25) Each Risk Factor Represents 2 Points: Age 61-74 years Each Risk Factor Represents 3 Points: History of DVT/PE Thrombosis Risk Factor Assessment Total Risk Factor Score: 6 Thrombosis Risk Factor Assessment Level: High Risk Assessment and Plan Assessment: Assessment and plan: 1. Chest pain noncardiac could be related to a prior pulmonary embolism. Continue patient on Xarelto 20 mg orally once every day, monitor the patient very closely in the hospital stay. Patient was seen early in consultation by cardiology echogram was ordered for tomorrow morning, continue aspirin 81 mg once every day increase metoprolol 25 mg orally twice every day add lisinopril Hydrochlorothiazide 10/12.5 mg orally once every day. We will monitor the patient blood pressure very closely. 2. Prior history of bilateral saddle pulmonary emboli. Repeat his computed tomography scan showed a small chronic right pulmonary artery embolism. Continue with Xarelto 20 mg orally once every day. 3. Hypertension and hypertensive cardiovascular disease. Continue metoprolol 25 mg orally twice every day, add lisinopril hydrochlorothiazide 10/12.5 g ora lly once every day. 4. Former smoker. Continue to be absence from tobacco use. 5. Overweight. Diet and exercise and weight loss. 6. Recurrent vertigo we will follow as an outpatient. 7. DVT prophylaxis. Continue patient on Xarelto 20 mg orally once every day. 8. Admit to inpatient. Estimate a length of stay 2 midnights. 9. Patient is full code. 10. Hopefully home tomorrow morning if echocardiogram is okay.
[2020-01-28] MEDS: RIVAROXABAN 20 MG TAB PO SCH (12:53)
[2020-01-28 13:47] VITALS: BMI 34.7
[2020-01-28] MEDS: METOPROLOL TARTRATE 25 MG TAB PO SCH (20:26)
[2020-01-29] MEDS: METOPROLOL TARTRATE 25 MG TAB PO SCH ×2 (07:43→20:49)
[2020-01-29] MEDS: ASPIRIN 81 MG PO SCH (07:43)
[2020-01-29] MEDS ORDERED: LISINOPRIL-HCTZ 10-12.5 MG 1 EACH TAB PO SCH (09:00)
--- NOTE | 2020-01-29 09:49 | P.PN ---
Subjective This is a pleasant 64-year-old male past medical history significant for pulmonary embolism maintained on long-term anticoagulation for hypertension and former nicotine dependence. He follows in the office with Dr. Bolanos. He is seen and examined resting comfortably laying flat in bed in no acute distress. He has no further episodes of chest discomfort, shortness of breath, dizziness or palpitations. Blood pressure 126/79 heart rate 67 afebrile maintaining oxygen saturation on room air. Laboratory data reviewed, cardiac enzymes negative 3. Currently maintained on Xarelto 20 mg daily, metoprolol 25 mg twice a day, aspirin 81 mg daily and lisinopril 10/12.5 mg daily. GENERAL: Well-appearing, well-nourished and in no acute distress. NECK: Supple without JVD or thyromegaly. LUNGS: Breath sounds clear to auscultation bilaterally. Respiration equal and unlabored. No wheezes, rales or rhonchi. HEART: Regular rate and rhythm without murmurs, rubs or gallops. S1 and S2 heard. EXTREMITIES: Normal range of motion, no edema. No clubbing or cyanosis. Peripheral pulses intact. ASSESSMENT Chest pain, atypical. An acute coronary event has been ruled out. Pulmonary embolism, chronic. Maintained on long-term anticoagulation Hypertension, uncontrolled. Zestoretic added per the primary care team. Former nicotine dependence PLAN Echocardiogram has been ordered and will be reviewed. If echocardiogram is normal he be discharged from a cardiac perspective to follow-up with Dr. Bolanos in the office. Nurse Practitioner note has been reviewed, I agree with a documented findings and plan of care. Patient was seen and examined. Objective - Vital Signs Vital signs: Vital Signs Temp 98.2 F 01/29/20 07:36 Pulse 67 01/29/20 07:36 Resp 17 01/29/20 07:36 BP 126/79 01/29/20 07:36 Pulse Ox 95 01/29/20 07:36 Intake & Output 01/28/20 01/29/20 01/29/20 18:59 06:59 18:59 Intake Total 540 Output Total 600 Balance -60 Weight 122.924 kg Intake: Oral 540 Output: Urine 600 Other: Voiding Method Toilet Toilet Toilet # Voids 1 - Labs CBC & Chem 7: 01/27/20 20:10 01/27/20 20:10
--- NOTE | 2020-01-29 13:31 | P.PN ---
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 01/28: Patient has been afebrile, heart rate 67, blood pressure 126/79, pulse ox 95% on room air. Patient has been seen by cardiology and cleared for discharge if echocardiogram is normal. Cardiology has recommended follow-up with hematology regarding pulmonary embolism. Patient has been seen by hematology at [facility]. Patient had episode this afternoon where he became dizzy, double vision, nauseated, heart rate went up to 130, blood pressure 161/91. EKG was a sinus rhythm with no acute changes. He denies any loss of strength, he states he ate his breakfast without difficulty this morning. He did refuse to take the lisinopril/hydrochlorothiazide this morning. We will check CTA of the head and neck, neurology consult, patient started on meclizine and Solu-Medrol. Plan to monitor patient overnight and possible discharge tomorrow. Echocardiogram is pending. Objective - Vital Signs Vital signs: Vital Signs Temp 98.2 F 01/29/20 07:36 Pulse 84 01/29/20 12:24 Resp 17 01/29/20 07:36 BP 152/87 01/29/20 12:24 Pulse Ox 95 01/29/20 07:36 Intake & Output 01/28/20 01/29/20 01/29/20 18:59 06:59 18:59 Intake Total 540 Output Total 600 Balance -60 Weight 122.924 kg Intake: Oral 540 Output: Urine 600 Other: Voiding Method Toilet Toilet Toilet # Voids 1 - Exam Review of Systems Constitutional: Reports chronic pain, Denies fatigue, Denies lethargy, Denies weakness, Denies weight gain Eyes: Reports episode of blurred vision, denies bulging eye, denies decreased vision Ears: deny: decreased hearing Ears, nose, mouth and throat: Denies dysphagia, Denies neck lump, Denies sore throat Cardiovascular: Reports chest pain, Reports decreased exercise tolerance, Reports dyspnea on exertion, Reports shortness of breath, reports lightheadedness, reports rapid heart beat, reports presyncope Respiratory: Reports pleurisy, Denies congestion, Denies cough with sputum, Denies home oxygen, Denies pain, Denies sleep apnea, Denies snoring, Denies wheezing Gastrointestinal: Denies abdominal pain, Denies BRBPR, Denies change in bowel habits, Denies heartburn, Denies loss of appetite, Denies melena, Denies nausea, Denies vomiting Genitourinary: Denies dysuria Musculoskeletal: Reports low back pain, Reports neck pain Musculoskeletal: absent: ankle pain, ankle stiffness, ankle swelling, elbow pain, elbow stiffness, elbow swelling, foot pain, foot stiffness, foot swelling, hand pain, hand stiffness, hand swelling, hip pain, hip stiffness, hip swelling, knee pain, knee stiffness, knee swelling, shoulder pain, shoulder stiffness, shoulder swelling, wrist pain, wrist stiffness, wrist swelling Integumentary: Denies pruritus, Denies rash Neurological: Denies numbness, Denies weakness Psychiatric: Reports anxiety, Denies depression Endocrine: Denies fatigue, Denies weight change Physical examination: GEN: This is a 64-year-old obese male. He is resting in bed and appears to be in distress secondary to symptoms. HEENT: Head is atraumatic, normocephalic, pupils were equal round reactive to light and accommodation, extraocular muscle movement were intact. Neck: Supple, no JVP, no carotid bruit. Chest: Clear to auscultation bilaterally there is no crackles no wheezes no chest wall tenderness no intercostal retractions. Heart: First heart sound is depressed, second heart sounds normal, there is no gallop or murmur. Abdomen: Soft nontender nondistended positive bowel sounds. Extremities: There is no edema no calf tenderness, dorsalis pedis +2 bilaterally. Neurologic examination: Patient is awake alert and oriented 3, cranial nerves III-12 appear grossly intact, muscle power 4 out of 5 in upper and lower extremity bilaterally, deep tendon reflexes were normal. - Labs CBC & Chem 7: 01/27/20 20:10 01/27/20 20:10 Assessment and Plan Plan: 1. Chest pain noncardiac could be related to a prior pulmonary embolism. Continue patient on Xarelto 20 mg orally once every day, monitor the patient very closely in the hospital stay. Patient was seen early in consultation by cardiology echogram ordered, continue aspirin 81 mg once every day increase metoprolol 25 mg orally twice every day add lisinopril Hydrochlorothiazide 10/12.5 mg orally once every day. We will monitor the patient blood pressure very closely. 2. Prior history of bilateral saddle pulmonary emboli. Repeat his computed tomography scan showed a small chronic right pulmonary artery embolism. Continue with Xarelto 20 mg orally once every day. 3. Presyncopal episode. Consult with neurology, CTA of the head and neck, meclizine and steroids added. 4. Hypertension and hypertensive cardiovascular disease. Continue metoprolol 25 mg orally twice every day, add lisinopril hydrochlorothiazide 10/12.5 g orally once every day. 5. Former smoker. Continue to be absence from tobacco use. 6. Overweight. Diet and exercise and weight loss. 7. Recurrent vertigo we will follow as an outpatient. 8. DVT prophylaxis. Continue patient on Xarelto 20 mg orally once every day. 9. Admit to inpatient. Estimate a length of stay 2 midnights. 10. COVID-19 testing. Patient is full code. Discharge plan: Home Impression and plan of care have been directed as dictated by the signing physician. Kylah Lopez nurse practitioner acting as scribe for signing physician.
--- NOTE | 2020-01-29 15:22 | CT ---
EXAMINATION TYPE: CT angio head neck DATE OF EXAM: 01/29/2020 COMPARISON: None HISTORY: Headache, presyncope, dizziness, double vision. CT DLP: 1630.3 mGycm CONTRAST: Performed without and with IV Contrast, patient injected with 65 mL of Isovue 370. Combination Contrast CTA cervical carotids and [place] of [place] CTA cervical carotids with 3-D recons truction Contrast CTA of the cervical carotids was performed 3-D reconstruction imaging obtained at a separate workstation. Right carotid system: Mild plaque is seen of the right common carotid artery. There is mild plaque a lso noted at the carotid bulb and proximal ICA. No significant diameter reduction. ECA is patent. Right vertebral artery appears unremarkable. Left carotid system: Mild plaque is seen of the left common carotid artery. There is mild plaque als o noted at the carotid bulb and proximal ICA. No significant diameter reduction. ECA is patent. Lef t vertebral artery appears unremarkable. IMPRESSION: 1. No significant diameter reduction to account for the patient's symptoms. CTA twenty-nine palms of [place] with 3-D reconstruction Contrast CTA of the twenty-nine palms of [place] was performed 3-D reconstruction imaging obtained at a separate workstation. Vertebrobasilar system as well as intracranial portions of the internal carotid arteries and their ma alberto tributaries are patent. I do not see evidence for sizable aneurysm or vascular malformation. Pl ease note MRI provides greater sensitivity and specificity. Visualized brain appears grossly unremar kable. IMPRESSION: 1. No significant abnormality.
[2020-01-29] MEDS: methylPREDNISolone SOD SUCCI 40 MG/ML 1 ML VIAL IV SCH (15:46)
[2020-01-29] MEDS: MECLIZINE 25 MG TAB PO PRN (16:07)
[2020-01-29] MEDS: RIVAROXABAN 20 MG TAB PO SCH (17:10)
--- NOTE | 2020-01-29 18:49 | P.CNNES ---
History of Present Illness Consult date: 01/29/20 Requesting physician: Kylah Lopez Reason for Consult: Presyncope, dizziness History of Present Illness: Patient is a 64-year-old male, with previous history of vertigo off and on since September 2019, had another episode recently. Patient was actually admitted on 01/27/2024 chest pressure and dyspnea. While in the hospital today, he had an episode of intense vertigo. Patient says that he got out of chair and suddenly the vertigo hit. He felt his feet went numb but not the legs. Patient states that he continues to have symptoms. As long as is laying in the bed he is fine. However when he gets up from the bed, he starts getting spinning sensation. Denies any focal numbness tingling, weakness, slurred speech, double vision, loss of vision, hearing loss, hoarseness sore throat or dysphagia. Patient apparently had been seen in hospital consultation on 11/12/2019 for similar symptoms. He had a normal carotid Doppler and a 2-D echo. He was recommended an outpatient ENT specialist evaluation. Patient stated that he was speaking to his family doctor recently to schedule an appointment but has not set up yet. Patient had CTA of chest showed small embolism in the right lower lobe pulmonary artery that appears chronic. The emboli are significantly reduced compared to old exam which shows extensive large bilateral emboli. No evidence of any new pulmonary embolism. Chest x-ray showed no acute disease. There is clearing of some minimal atelectasis left lower lobe compared to old exam. EKG shows sinus rhythm with occasional PVCs. CTA of head and neck showed no significant dimetria reduction to account for the patient's symptoms. CTA of pe[place]anga of [place] is normal. 2-D echo from 11/14/2019 showed moderate concentric LVH, EF 55-60%. Left atrial size is normal. Unable to perform bubble study due to poor suboptimal images. CBC is normal, Chem-20 normal. Patient's B12 is 321 on 11/12/2019. Folate 14.9, TSH normal. Total cholesterol 161, LDL 94.2, HDL 39 and triglycerides 13 9. Patient is currently on Xarelto due to the previous PE. Review of Systems As mentioned above in HPI. All other 14 points of review of systems completely unremarkable. Past Medical History Past Medical History: Hypertension, Pulmonary Embolus (PE) History of Any Multi-Drug Resistant Organisms: None Reported Past Surgical History: Back Surgery Additional Past Surgical History / Comment(s): cervial fusion Past Anesthesia/Blood Transfusion Reactions: No Reported Reaction Past Psychological History: Anxiety Smoking Status: Former smoker Past Alcohol Use History: Occasional Past Drug Use History: None Reported - Past Family History Mother Family Medical History: Coronary Artery Disease (CAD), Diabetes Mellitus, Hypertension Medications and Allergies Home Medications Medication Instructions Recorded Confirmed Type Metoprolol Tartrate [Lopressor] 25 mg PO BID 01/27/20 01/27/20 History Rivaroxaban [Xarelto] 20 mg PO DAILY 01/27/20 01/27/20 History Meclizine [Antivert] 25 mg PO QID PRN #60 tab 01/30/20 Rx Allergies Allergy/AdvReac Type Severity Reaction Status Date / Time No Known Allergies Allergy Verified 01/27/20 22:30 Physical Examination - Vital Signs Vital Signs: Vital Signs Temp Pulse Resp BP BP Pulse Ox 01/29/20 13:29 87 152/81 01/29/20 12:24 84 152/87 01/29/20 12:10 161/91 01/29/20 07:36 98.2 F 67 17 126/79 95 01/29/20 03:15 97.5 F L 82 17 129/78 97 01/28/20 20:15 98.3 F 82 17 132/81 97 Intake and Output 01/29/20 01/29/20 01/29/20 06:59 14:59 22:59 Other: Voiding Method Toilet Toilet # Voids 1 On examination patient is a late middle aged male, in no acute distr ess. Patient is alert awake oriented to time place and person. Speech and language functions are normal. Attention and concentration fund of knowledge is adequate. On cranial examination pupils are round and reacting to light, visual morton are full on confrontation. Extraocular muscles are intact with no nystagmus. Face is symmetric, tongue protrudes to the midline. Palatal elevation and sensation normal. Hearing and shoulder shrug normal. On muscle strength testing there is no pronator drift and the strength is normal in arms and legs distally and proximally. Reflexes are 1+ and plantars downgoing sensory touch is equal. No ataxia for [id number]-vy-poqn or pdta-uc-pmjp testing. Tone and bulk of muscles normal. There is no carotid bruit, S1 and S2 audible, peripheral pulses present. Abdomen soft nontender. Chest clear. Results - Laboratory Findings CBC and BMP: 01/27/20 20:10 01/27/20 20:10 Abnormal Lab Findings: Abnormal Labs 01/27/20 01/27/20 20:10 20:21 PT 12.3 H INR 1.2 H Glucose 120 H Assessment and Plan Assessment: * 64-year-old male, with recent history of significant pulmonary embolism, also has episodes of vertigo. Exact cause is uncertain. Probable peripheral vestibular dysfunction, BPPV. Rule out cerebellar TIA/CVA, rule out embolic source. Plan: * MRI of the brain to rule out CVA. * Patient previously had a 2-D echo performed, but bubble study was not able to be performed due to poor suboptimal images. We will recheck a limited 2-D echo with bubble study to rule out PFO or ASD. This is important in relation to patient having a recent large PE and DVT, to rule out paradoxical embolism. * Continue Xarelto. * If above test comes back normal, then would recommend patient to follow up with ENT specialist. * Discussed with patient and his in detail.
[2020-01-30] MEDS: methylPREDNISolone SOD SUCCI 40 MG/ML 1 ML VIAL IV SCH (01:13)
[2020-01-30 07:48] VITALS: BP 153/90; PULSE 76; RESP 14; TEMP 97.7
[2020-01-30] MEDS: METOPROLOL TARTRATE 25 MG TAB PO SCH (09:20)
[2020-01-30] MEDS: ASPIRIN 81 MG PO SCH (09:20)
[2020-01-30] MEDS: MECLIZINE 25 MG TAB PO PRN (09:37)
--- NOTE | 2020-01-30 09:57 | ECHOF ---
Referral Reason:Dyspnea MEASUREMENTS -------- HEIGHT: 188.0 cm WEIGHT: 122.9 kg BP: 129/78 RVIDd: 3.4 cm (< 3.3) IVSd: 1.3 cm (0.6 - 1.1) LVIDd: 4.5 cm (3.9 - 5.3) LVPWd: 1.2 cm (0.6 - 1.1) IVSs: 1.8 cm LVIDs: 2.8 cm LVPWs: 1.9 cm LA Diam: 3.7 cm (2.7 - 3.8) LAESV Index (A-L): 14.22 ml/m Ao Diam: 3.7 cm (2.0 - 3.7) AV Cusp: 2.3 cm (1.5 - 2.6) MV EXCURSION: 19.089 mm (> 18.000) MV EF SLOPE: 69 mm/s (70 - 150) EPSS: 0.8 cm MV E Lucho: 0.71 m/s MV DecT: 203 ms MV A Lucho: 0.78 m/s MV E/A Ratio: 0.92 FINDINGS -------- Sinus rhythm. This was a technically adequate study. The left ventricular size is normal. There is mild concentric left ventricular hypertrophy. Overa ll left ventricular systolic function is normal with, an EF between 60 - 65 %. The right ventricle is mildly enlarged. Normal LA size by volume 22+/-6 ml/m2. The right atrium is normal in size. Interatrial and interventricular septum intact. The aortic valve is trileaflet and appears structurally normal. The mitral valve is normal. The tricuspid valve appears structurally normal. Trace/mild (physiologic) pulmonic regurgitation. The aortic root size is normal. Normal inferior vena cava with normal inspiratory collapse consistent with estimated right atrial pre ssure of 5 mmHg. There is no pericardial effusion. CONCLUSIONS -------- 1. The left ventricular size is normal. 2. There is mild concentric left ventricular hypertrophy. 3. Overall left ventricular systolic function is normal with, an EF between 60 - 65 %. 4. The right ventricle is mildly enlarged. 5. Normal LA size by volume 22+/-6 ml/m2. 6. The aortic valve is trileaflet and appears structurally normal. 7. Trace/mild (physiologic) pulmonic regurgitation. 8. The aortic root size is normal. 9. There is no pericardial effusion. ENDOSCOPY TECHNICIAN: Marilyn Washington RDCS
--- NOTE | 2020-01-30 10:43 | MR ---
EXAMINATION TYPE: MR brain wo con DATE OF EXAM: 01/30/2020 10:12 AM COMPARISON: NONE HISTORY: Vertigo, rule out TIA/CVA FINDINGS: The ventricles, basal cisterns and sulci overlying the cerebral convexities are mildly enlarged. There is evidence of mild periventricular white matter ischemic demyelination. Remote deep white matter insults are also noted. No acute edema is seen on diffusion weighted imaging. There is no evidence for midline shift or mass effect. Acute intracranial hemorrhage or extra-axial collection is not evident. The paranasal sinuses and mastoid air cells are well-aerated. IMPRESSION: Age-related atrophic and chronic small vessel ischemic change. No acute intracranial process at this time.
--- NOTE | 2020-01-30 12:10 | P.DS ---
Providers Date of admission: 01/27/20 22:04 Expected date of discharge: 01/30/20 Attending physician: Jayden Hobson Consults: 01/28/20 03:07 Consult Physician Routine Consulting Provider: Leonid Gonzáles Consult Reason/Comments: chest pain Do you want consulting provider notified?: Yes, Notify in am Primary care physician: Jayden Hobson Hospital Course: This is a 64-year-old male one by patient with a previous medical history significant for hypertension and hypertensive cardiovascular disease, was diagnosed with saddle bilateral pulmonary emboli back in October 2019 when he was treated at [facility] and at that time he was placed on Xarelto and patient has been having on and off chest pain with increased shortness breath since his initial diagnosis of pulmonary embolism, he has been following 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 Bolanos and regular basis he underwent a recent stress test back in December 2019 and that came back negative for any stress-induced ischemia, he also did have an echocardiogram back pain that was normal ejection fraction without any acute abnormalities, patient was cleaning his cardiac yesterday with cleaning the [employer] department and he was lifting the cardiac from one side to the other when he suddenly developed to have a squeezing sensation of the chest associated with significant shortness of breath. The patient could not take enough deep breath, there was no radiation of the pain at that time, he was complaining for low back pain as well as radiation to both lower extremities as well, his brought him to the ER at [facility] where he had an EKG did not show any evidence of acute of normalities, chest x-ray showed minimal atelectasis without any acute infiltrate, and the patient underwent computed tomography scan of the chest and that showed a chronic right lower lobe pulmonary artery embolism but there was resolution of the saddle pulmonary emboli that he had back in October 2019, patient was admitted to the hospital for evaluation his troponin 3 were negative, patient is chest pain-free at this time he was seen earlier by cardiology who recommended to repeated echo care gram and him tomorrow morning and hopefully he will be discharged home if everything is okay. 01/28: Patient has been afebrile, heart rate 67, blood pressure 126/79, pulse ox 95% on room air. Patient has been seen by cardiology and cleared for discharge if echocardiogram is normal. Cardiology has recommended follow-up with hematology regarding pulmonary embolism. Patient has been seen by hematology at [facility]. Patient had episode this afternoon where he became dizzy, double vision, nauseated, heart rate went up to 130, blood pressure 161/91. EKG was a sinus rhythm with no acute changes. He denies any loss of strength, he states he ate his breakfast without difficulty this morning. He did refuse to take the lisinopril/hydrochlorothiazide this morning. We will check CTA of the head and neck, neurology consult, patient started on meclizine and Solu-Medrol. Plan to monitor patient overnight and possible discharge tomorrow. Echocardiogram is pending. 01/29: CT angiogram of the head and neck revealed no significant diameter reduction to help patient's symptoms. No abnormality in the mcgrath of [place]. Patient was seen by Dr. Keene with recommendations to continue Xarelto and is MRI is normal, follow-up with ENT. MRI of the brain revealed age-related atrophy and chronic small vessel ischemic change. No acute intracranial process. Echocardiogram reveals EF of 60-65%, mild concentric left ventricular h ypertrophy. Patient had another episode during the night wears heart rate went up to 130. He has refused lisinopril/hydrochlorothiazide and steroids. He has no chest pain or shortness of breath. Patient will be discharged home today in stable condition. Discharge diagnoses: 1. Chest pain noncardiac could be related to a prior pulmonary embolism. 2. Prior history of bilateral saddle pulmonary emboli. 3. Hypertension and hypertensive cardiovascular disease. 4. Presyncopal episode. 5. Overweight. 6. Recurrent vertigo secondary vestibular neuritis 7. COVID-19 infection not present Discharge plan: Home Impression and plan of care have been directed as dictated by the signing physician. Kylah Lopez nurse practitioner acting as scribe for signing carin inman. Patient Condition at Discharge: Good Plan - Discharge Summary Discharge Rx Participant: No New Discharge Prescriptions: New Meclizine [Antivert] 25 mg PO QID PRN #60 tab PRN Reason: Vertigo Continue Metoprolol Tartrate [Lopressor] 25 mg PO BID Rivaroxaban [Xarelto] 20 mg PO DAILY Discharge Medication List Metoprolol Tartrate [Lopressor] 25 mg PO BID 01/27/20 [History] Rivaroxaban [Xarelto] 20 mg PO DAILY 01/27/20 [History] Meclizine [Antivert] 25 mg PO QID PRN #60 tab 01/30/20 [Rx] Follow up Appointment(s)/Referral(s): Donald Nixon MD [STAFF PHYSICIAN] - 2 Weeks Rex Bolanos MD [STAFF PHYSICIAN] - 2 Weeks Jayden Hobson MD [Primary Care Provider] - 1 Week Leonel Kline MD [STAFF PHYSICIAN] - 1 Week Discharge Disposition: HOME SELF-CARE
--- NOTE | 2020-01-30 12:19 | P.PN ---
Subjective This is a pleasant 64-year-old male past medical history significant for pulmonary embolism maintained on long-term anticoagulation for hypertension and former nicotine dependence. He follows in the office with Dr. Bolanos. He is seen and examined resting comfortably laying flat in bed in no acute distress. He has been having episodes of dizziness with movement or exertion. Telemetry tracings reveals sinus tachycardia. MRI of the brain revealed no acute intracranial process with age-related atrophic and chronic small vessel ischemic changes. He has been seen in evaluation by neurology who thinks this is related to an anterior problem. Echocardiogram revealed preserved LV systolic function with ejection fraction 60-65% with mildly enlarged right ventricle. GENERAL: Well-appearing, well-nourished and in no acute distress. NECK: Supple without JVD or thyromegaly. LUNGS: Breath sounds clear to auscultation bilaterally. Respiration equal and unlabored. No wheezes, rales or rhonchi. HEART: Regular rate and rhythm without murmurs, rubs or gallops. S1 and S2 heard. EXTREMITIES: Normal range of motion, no edema. No clubbing or cyanosis. Peripheral pulses intact. ASSESSMENT Chest pain, atypical. An acute coronary event has been ruled out. Vertigo Pulmonary embolism, chronic. Maintained on long-term anticoagulation Hypertension, uncontrolled. Zestoretic added per the primary care team. Former nicotine dependence PLAN Continue lopressor and xarelto as previously ordered. Follow up in the office with Dr. Bolanos in 1-2 weeks. Nurse Practitioner note has been reviewed, I agree with a documented findings and plan of care. Patient was seen and examined. Objective - Vital Signs Vital signs: Vital Signs Temp 97.7 F 01/30/20 07:47 Pulse 76 01/30/20 07:47 Resp 14 01/30/20 07:47 BP 153/90 01/30/20 07:47 Pulse Ox 99 01/30/20 07:47 Intake & Output 01/29/20 01/30/20 01/30/20 18:59 06:59 18:59 Output Total 570 Balance -570 Output: Urine 570 Other: Voiding Method Toilet Toilet Toilet # Voids 1 - Labs CBC & Chem 7: 01/27/20 20:10 01/27/20 20:10
--- NOTE | 2020-01-30 13:00 | ECHOF ---
Referral Reason:Rule out PFO, rule out TIA MEASUREMENTS -------- HEIGHT: 188.0 cm WEIGHT: 122.9 kg BP: 129/79 FINDINGS -------- Sinus rhythm. Limited Study Overall left ventricular systolic function is normal with, an EF between 55 - 60 %. Contrast study was performed with 2 iv injections of 8 ccs of agitated normal saline, at rest, and wi th cough. No PFO noted. No right to left shunt There is no pericardial effusion. CONCLUSIONS -------- 1. Limited Study 2. Contrast study was performed with 2 iv injections of 8 ccs of agitated normal saline, at rest, and with cough. 3. No PFO noted. No right to left shunt 4. There is no pericardial effusion. REFRIGERATION INSULATOR: Marilyn Washington RDCS
--- NOTE | 2020-01-30 18:18 | P.PN ---
Subjective Progress Note Date: 01/30/20 Late entry Patient was seen before he was discharged. Patient states he is feeling better. No new focal symptoms. Objective - Vital Signs Vital signs: Vital Signs Temp 97.7 F 01/30/20 07:47 Pulse 76 01/30/20 07:47 Resp 14 01/30/20 07:47 BP 153/90 01/30/20 07:47 Pulse Ox 99 01/30/20 07:47 Intake & Output 01/29/20 01/30/20 01/30/20 18:59 06:59 18:59 Output Total 570 Balance -570 Output: Urine 570 Other: Voiding Method Toilet Toilet Toilet # Voids 1 - Exam Deferred. No change. - Labs CBC & Chem 7: 01/27/20 20:10 01/27/20 20:10 Assessment and Plan Assessment: * 64-year-old male, with recent history of significant pulmonary embolism, also has recurrent episodes of vertigo. Probable due to peripheral vestibular dysfunction. Plan: * MRI of the brain negative for any acute or remote CVA. * 2-D echo with bubble study negative for PFO or onpju-pc-oxzu shunt. * Continue Xarelto. * Follow up with ENT specialist. * Neurologically clear for discharge.
== END 2020-01-30 13:46 | disposition home or self-care (01) ==
LOC: EC 19:59 → 3NCARDOBS 22:04 → OBSVTOIN 01-30 09:53 → INTOOBSV 01-30 09:53 → UNDODISIN 01-30 13:46
PROVIDERS: ADMIT Internal Medicine; ATTEND Internal Medicine
DX: R07.89 Other chest pain (principal); I27.82 Chronic pulmonary embolism; H81.20 Vestibular neuronitis, unspecified ear; I11.9 Hypertensive heart disease without heart failure; I44.4 Left anterior fascicular block; G89.29 Other chronic pain; M54.5 Low back pain; R20.0 Anesthesia of skin; F41.9 Anxiety disorder, unspecified; E66.9 Obesity, unspecified; Z68.34 Body mass index [BMI] 34.0-34.9, adult; R55 Syncope and collapse; R00.0 Tachycardia, unspecified; Z20.828 Contact with and (suspected) exposure to other viral communicable diseases; Z79.01 Long term (current) use of anticoagulants; Z79.82 Long term (current) use of aspirin; Z79.899 Other long term (current) drug therapy; Z87.891 Personal history of nicotine dependence; Z98.1 Arthrodesis status; Z83.3 Family history of diabetes mellitus; Z82.49 Family history of ischemic heart disease and other diseases of the circulatory system
CPT/HCPCS: 93005 ×3; 99285; 36415; 93308; 93306; 80053; 83605; 83735; 84484 ×2; 85025; 85610; 85730; 71045; 70496; 70498; 71275; 70551; G0378 ×4; U0003; J2920; Q9967 ×2

== ENCOUNTER → 2020-03-18 | Outpatient (CLI) | payer BC ==
--- NOTE | 2020-03-19 07:30 | US ---
EXAMINATION TYPE: US venous doppler duplex LE BI DATE OF EXAM: 03/18/2020 6:19 PM COMPARISON: NONE CLINICAL HISTORY: 64-year-old male 182.5Z9 DVT OF LE. History of recent DVT. History of PE. Patient o n Xarelto. SIDE PERFORMED: Bilateral TECHNIQUE: The lower extremity deep venous system is examined utilizing real time linear array sonog gaudencio with graded compression, doppler sonography and color-flow sonography. FINDINGS: VESSELS IMAGED: External Iliac Vein (EIV) Common Femoral Vein Deep Femoral Vein Greater Saphenous Vein * Femoral Vein Popliteal Vein Small Saphenous Vein * Proximal Calf Veins (* superficial vessels) Right Leg: No evidence of DVT in veins imaged at this time from upper calf veins to EIV. Left Leg: No evidence of DVT in veins imaged at this time from upper calf veins to EIV. IMPRESSION: No evidence for DVT within the bilateral lower extremities imaged from the groin to the upper calves.
--- NOTE | 2020-03-19 07:45 | CT ---
EXAMINATION TYPE: CT abdomen pelvis w con DATE OF EXAM: 03/18/2020 COMPARISON: None. HISTORY: Weight loss per order. CT DLP: 1769.6 mGycm, Automated Exposure Control for Dose Reduction was Utilized. CONTRAST: CT scan of the abdomen and pelvis is performed with oral and with IV Contrast, patient injected with 100 mL of Isovue 300. FINDINGS: LUNG BASES: No significant abnormality is appreciated. LIVER/GB: No significant abnormality is appreciated. PANCREAS: Asymmetric bulkiness in the pancreatic head causing mass effect on the adjacent duodenal sw eep. No obvious solid or cystic mass at this level. No suspicious biliary or ductal dilatation noted. SPLEEN: Incidental subcentimeter splenule axial image 19. ADRENALS: No significant abnormality is seen. KIDNEYS: Symmetric corticomedullary uptake and excretion with subcentimeter thin-walled cyst left kid kiel midpole level series 5 image 38. Small central thin-walled parapelvic cyst left kidney also prese nt no hydronephrosis noted bilaterally.. BOWEL: Oral contrast does not reach level of distal ileum making evaluation distal bowel slightly sub optimal. No suspicious small or large bowel dilatation. Normal-appearing appendix ascends from cecum in the posterior right mid to lower abdomen. Redundancy of the sigmoid colon is present. No obvious m ass or suspicious wall thickening. PROSTATE/SEMINAL VESICLES: Prostate gland upper limits of normal in size. LYMPH NODES: No greater than 1cm abdominal or pelvic lymph nodes are appreciated. OSSEOUS STRUCTURES: Fairly moderate multilevel anterior and lateral spurring in the thoracolumbar spi ne. Multilevel facet arthropathy lower lumbar spine. Yjef-jb-ezqcxsfa narrowing and narrowing of both hip joints. OTHER: Zqfo-rh-uoydgefq atherosclerotic change of aorta extends into branch vessels. IMPRESSION: Asymmetric bulkiness pancreatic head without definitive focal mass. Consider short-term p ancreatic protocol CT or MRI in 3 months time to reassess otherwise No suspicious mass or adenopathy to suggest neoplasm.
== END | disposition home or self-care (01) ==
LOC: RADCTMAIN 15:36
PROVIDERS: ATTEND Internal Medicine Hematology & Oncology
DX: K86.89 Other specified diseases of pancreas (principal); I82.5Z9 Chronic embolism and thrombosis of unspecified deep veins of unspecified distal lower extremity
CPT/HCPCS: 93970; 74177; Q9967

== ENCOUNTER → 2020-08-07 | Outpatient (CLI) | payer BC ==
--- NOTE | 2020-08-07 12:50 | CT ---
EXAMINATION TYPE: CT angio chest DATE OF EXAM: 08/07/2020 COMPARISON: 01/27/2020 HISTORY: Other pulmonary embolism CT DLP: 640 mGycm CONTRAST: CT chest with contrast and 3D reconstruction with MIP imaging is performed without and with IV Contra st, patient injected with 100 ml mL of Isovue 370. Contrast-enhanced CT of the chest was performed through the course of the pulmonary arteries with neeta g and mediastinal window settings submitted. 3D reconstruction with MIP imaging was also performed. PULMONARY ARTERIES: The pulmonary arteries and their major tributaries are patent. I do not see stephany dence for sizable filling defect to suggest pulmonary embolic process. LUNGS: The lungs are clear and free of infiltrate. No evidence for atelectasis. No pulmonary nodule or mass is detected. No pleural effusion. MEDIASTINUM: Thoracic aorta is of normal caliber,however, evaluation is limited given timing of the contrast bolus. If there is concern for thoracic aortic pathology consider PASTORA. Correlate clinicall y . The heart is not enlarged. No evidence for mediastinal mass. No mediastinal lymph nodes greater than 1cm. HILAR STRUCTURES: No evidence for mass. No hilar lymph nodes greater than 1 cm. UPPER ABDOMEN: No significant abnormality is seen. IMPRESSION: 1. No evidence for Pulmonary embolism at this time.
== END | disposition home or self-care (01) ==
LOC: RADCTMAIN 11:39
PROVIDERS: ATTEND Internal Medicine
DX: I26.99 Other pulmonary embolism without acute cor pulmonale (principal)
CPT/HCPCS: 71275; Q9967

== ENCOUNTER → 2021-04-14 | Outpatient (CLI) | payer MEDICARE ==
--- NOTE | 2021-04-14 10:56 | CT ---
CT CHEST FOR PULMONARY EMBOLISM. EXAMINATION TYPE: CT angio chest DATE OF EXAM: 04/14/2021 INDICATION: Thoracic aortic aneurysm follow up CT DLP: 807.9 mGycm, Automated exposure control for dose reduction was used. CONTRAST: Patient injected with 100 mL of Isovue 370. COMPARISON: 08/07/2020 TECHNIQUE: CT of the chest is performed on a spiral scan at 2 mm thick sections. Study is performed with intravenous contrast timed for evaluation for pulmonary embolism. This will limit additional po rtions of the evaluation. 3-D MIP images reconstructed by the technologist are reviewed on the compu ter in the coronal and sagittal planes. FINDINGS: No persistent filling defects are evident to suggest an acute pulmonary embolism. No mediastinal or hilar adenopathy enlarged by CT criteria is evident. The ascending aorta diameter at the level of the main pulmonary artery is 4.0 cm. This measures slightly less than the 4.3 cm prev iously. The main pulmonary artery diameter at the bifurcation is 2.6 cm. Mild coronary artery calcif ication is present. Lung windows are clear. Limited CT section through the upper abdomen are unremarkable. IMPRESSIONS: 1. Ascending thoracic aortic aneurysmal 4.0 cm.
== END | disposition home or self-care (01) ==
LOC: RADCTMAIN 09:41
PROVIDERS: ATTEND Internal Medicine Interventional Cardiology
DX: I71.2 Thoracic aortic aneurysm, without rupture (principal)
CPT/HCPCS: 71275; Q9967

== ENCOUNTER 2021-08-14 13:22 | Emergency (ER) | payer MEDICARE ==
[2021-08-14 14:07] VITALS: TEMP 98.5
--- NOTE | 2021-08-14 14:58 | XR ---
EXAMINATION TYPE: XR chest 2V DATE OF EXAM: 08/14/2021 COMPARISON: 01/27/[address] 04/14/2021 HISTORY: 66 year-old male shortness of breath, difficulty breathing TECHNIQUE: PA and lateral views FINDINGS: ACDF hardware. Heart normal size. Aorta within normal limits. Diffuse interstitial prominence. Rounde d curvilinear density at the left hilum suspected rejection all or external artifact. No focal consol idation or pleural effusion. [facility] within the thoracic spine. IMPRESSION: 1. Interstitial prominence. Correlate for bronchitis or chronic asthma. 2. Curvilinear density at the left hilum suspected external versus projectional artifact. Follow-up r adiograph 4-6 weeks to reassess.
[2021-08-14 15:21] LABS: Basophils % (A) 1 %; Eosinophils # (A) 0.1 k/uL (0-0.7); Eosinophils % (A) 2 %; HCT 48.5 % (39.0-53.0); HGB 16.3 gm/dL (13.0-17.5); Lymphocytes # (A) 1.7 k/uL (1.0-4.8); Lymphocytes % (A) 26 %; MCH 30.3 pg (25.0-35.0); MCHC 33.6 g/dL (31.0-37.0); Mean Platelet Volume 7.6; Monocytes # (A) 0.4 k/uL (0-1.0); Monocytes % (A) 7 %; Neutrophils % (A) 63 %; Platelet Count 179 k/uL (150-450); RBC 5.38 m/uL (4.30-5.90); WBC 6.4 k/uL (3.8-10.6)
[2021-08-14 15:33] LABS: ALT 23 U/L (4-49); AST 30 U/L (17-59); African American GFR (CKD) >90 (>60 ml/min/1.73 sqM); Albumin 4.4 g/dL (3.5-5.0); Alkaline Phosphatase 84 U/L (38-126); Anion Gap 9 mmol/L; Blood Urea Nitrogen 15 mg/dL (9-20); Calcium 9.3 mg/dL (8.4-10.2); Carbon Dioxide 25 mmol/L (22-30); Chloride 105 mmol/L (98-107); Glucose 94 mg/dL (74-99); Non-African American GFR(CKD) 86 (>60 ml/min/1.73 sqM); Sodium 139 mmol/L (137-145); Total Protein 8.1 g/dL (6.3-8.2)
[2021-08-14 15:38] LABS: Potassium 4.4 mmol/L (3.5-5.1)
[2021-08-14 15:39] LABS: INR 1.2 (<1.2); Partial Thromboplastin Time 26.6 sec (22.0-30.0); Prothrombin Time 12.3 sec (9.0-12.0)
--- NOTE | 2021-08-14 16:22 | ED ---
SOB HPI - General Chief Complaint: Shortness of Breath Stated Complaint: Weakness,leg numbness Time Seen by Provider: 08/14/21 15:53 Source: patient Mode of arrival: wheelchair Limitations: no limitations - History of Present Illness Initial Comments: Srini is a 66-year-old male with a history of unprovoked pulmonary embolism in 2019. Patient presents the emergency Department today with complaint of shortness of breath. Patient reports that yesterday evening he parked in a basement working like, he walked up a flight of stairs to go to a restaurant and felt short of breath, he had persistent shortness breath for approximately an hour at which time he decided to return to his hotel room. Patient states that he also had some coolness and tingling in his feet. These symptoms resolved when driving to the hospital today however due to his history of pulmonary embolism the past he thought he should be evaluated. Patient has no other pulmonary history besides the pulmonary embolism. He was a smoker for a brief period of time but quit over 30 years ago. He stopped for been diagnosed with COPD or emphysema. No significant cardiac history. - Related Data Home Medications Medication Instructions Recorded Confirmed Metoprolol Tartrate [Lopressor] 25 mg PO BID 01/27/20 08/14/21 Rivaroxaban [Xarelto] 20 mg PO DAILY@1700 01/27/20 08/14/21 Atorvastatin [Lipitor] 40 mg PO DAILY 08/14/21 08/14/21 Losartan Potassium [Cozaar] 25 mg PO DAILY 08/14/21 08/14/21 Allergies Allergy/AdvReac Type Severity Reaction Status Date / Time No Known Allergies Allergy Verified 08/14/21 16:41 Review of Systems ROS Statement: Those systems with pertinent positive or pertinent negative responses have been documented in the HPI. ROS Other: All systems not noted in ROS Statement are negative. Past Medical History Past Medical History: Hypertension, Pulmonary Embolus (PE) History of Any Multi-Drug Resistant Organisms: None Reported Past Surgical History: Back Surgery Additional Past Surgical History / Comment(s): cervial fusion Past Anesthesia/Blood Transfusion Reactions: No Reported Reaction Past Psychological History: Anxiety Smoking Status: Former smoker Past Alcohol Use History: Occasional Past Drug Use History: None Reported - Past Family History Mother Family Medical History: Coronary Artery Disease (CAD), Diabetes Mellitus, Hypertension General Exam - General Exam Comments Initial Comments: Physical Exam GENERAL: Patient is well-developed and well-nourished. Patient is nontoxic and well- hydrated and is in no distress. HENT: Normocephalic, Atraumatic. EYES: PERRL, EOMI PULMONARY: Unlabored respirations. No audible rales rhonchi or wheezing was noted. CARDIOVASCULAR: There is a regular rate and rhythm without any murmurs gallops or rubs. ABDOMEN: Soft and nontender with normal bowel sounds. SKIN: Skin is clear with no lesions or rashes and otherwise unremarkable. : Deferred NEUROLOGIC: Patient is alert and oriented x3. Moving all extremities spontaneously MUSCULOSKELETAL: Normal extremities with adequate strength and full range of motion. No lower extremity swelling or edema. No calf tenderness. PSYCHIATRIC: Normal psychiatric evaluation. Limitations: no limitations Course Vital Signs 08/14/21 08/14/21 08/14/21 14:05 15:30 15:58 Temperature 98.5 F Pulse Rate 71 72 Respiratory 18 18 18 Rate Blood Pressure 129/73 138/85 O2 Sat by Pulse 99 96 Oximetry 08/14/21 19:02 Temperature Pulse Rate 68 Respiratory 19 Rate Blood Pressure 131/78 O2 Sat by Pulse 99 Oximetry Medical Decision Making - Medical Decision Making Patient was seen and evaluated labs and EKG as well as chest x-ray were obtained by triage and are unremarkable however given the patient's high risk for pulmonary embolism a negative d-dimer cannot be relied upon and a CTA was ordered, this was also unremarkable however there was noted coronary calc ifications. Patient didn't experience any chest pain recently. CT finding results were discussed with the patient I advised him he needs to follow with the payroll assistant for further cardiac testing including possible stress test or cardiac catheterization. In addition I advised patient to follow with pulmonology for evaluation of persistent shortness breath. Patient was agreeable with this plan and was discharged home in stable condition. - Lab Data Result diagrams: 08/14/21 15:14 08/14/21 15:14 Lab Results 08/14/21 08/14/21 08/14/21 Range/Units 15:14 15:14 15:14 WBC 6.4 (3.8-10.6) k/uL RBC 5.38 (4.30-5.90) m/uL Hgb 16.3 (13.0-17.5) gm/dL Hct 48.5 (39.0-53.0) % MCV 90.0 (80.0-100.0) fL MCH 30.3 (25.0-35.0) pg MCHC 33.6 (31.0-37.0) g/dL RDW 13.0 (11.5-15.5) % Plt Count 179 (150-450) k/uL MPV 7.6 Neutrophils % 63 % Lymphocytes % 26 % Monocytes % 7 % Eosinophils % 2 % Basophils % 1 % Neutrophils # 4.0 (1.3-7.7) k/uL Lymphocytes # 1.7 (1.0-4.8) k/uL Monocytes # 0.4 (0-1.0) k/uL Eosinophils # 0.1 (0-0.7) k/uL Basophils # 0.0 (0-0.2) k/uL PT 12.3 H (9.0-12.0) sec INR 1.2 H (<1.2) APTT 26.6 (22.0-30.0) sec D-Dimer 0.22 (<0.60) mg/L FEU Sodium 139 (137-145) mmol/L Potassium 4.4 (3.5-5.1) mmol/L Chloride 105 (98-107) mmol/L Carbon Dioxide 25 (22-30) mmol/L Anion Gap 9 mmol/L BUN 15 (9-20) mg/dL Creatinine 0.94 (0.66-1.25) mg/dL Est GFR (CKD-EPI)AfAm >90 (>60 ml/min/1.73 sqM) Est GFR (CKD-EPI)NonAf 86 (>60 ml/min/1.73 sqM) Glucose 94 (74-99) mg/dL Calcium 9.3 (8.4-10.2) mg/dL Total Bilirubin 1.0 (0.2-1.3) mg/dL AST 30 (17-59) U/L ALT 23 (4-49) U/L Alkaline Phosphatase 84 (38-126) U/L Troponin I (0.000-0.034) ng/mL Total Protein 8.1 (6.3-8.2) g/dL Albumin 4.4 (3.5-5.0) g/dL 08/14/21 Range/Units 15:14 WBC (3.8-10.6) k/uL RBC (4.30-5.90) m/uL Hgb (13.0-17.5) gm/dL Hct (39.0-53.0) % MCV (80.0-100.0) fL MCH (25.0-35.0) pg MCHC (31.0-37.0) g/dL RDW (11.5-15.5) % Plt Count (150-450) k/uL MPV Neutrophils % % Lymphocytes % % Monocytes % % Eosinophils % % Basophils % % Neutrophils # (1.3-7.7) k/uL Lymphocytes # (1.0-4.8) k/uL Monocytes # (0-1.0) k/uL Eosinophils # (0-0.7) k/uL Basophils # (0-0.2) k/uL PT (9.0-12.0) sec INR (<1.2) APTT (22.0-30.0) sec D-Dimer (<0.60) mg/L FEU Sodium (137-145) mmol/L Potassium (3.5-5.1) mmol/L Chloride (98-107) mmol/L Carbon Dioxide (22-30) mmol/L Anion Gap mmol/L BUN (9-20) mg/dL Creatinine (0.66-1.25) mg/dL Est GFR (CKD-EPI)AfAm (>60 ml/min/1.73 sqM) Est GFR (CKD-EPI)NonAf (>60 ml/min/1.73 sqM) Glucose (74-99) mg/dL Calcium (8.4-10.2) mg/dL Total Bilirubin (0.2-1.3) mg/dL AST (17-59) U/L ALT (4-49) U/L Alkaline Phosphatase (38-126) U/L Troponin I <0.012 (0.000-0.034) ng/mL Total Protein (6.3-8.2) g/dL Albumin (3.5-5.0) g/dL Disposition Clinical Impression: Dyspnea Disposition: HOME SELF-CARE Condition: Stable Additional Instructions: Your CT scan shows no signs of pulmonary embolism, however you do have evidence of caclifications of the blood vessels of your heart, you need to follow up with a payroll assistant for further workup. Is patient prescribed a controlled substance at d/c from ED?: No Referrals: Jayden Hobson MD [Primary Care Provider] - 1-2 days [facility] [Provider Group] - 1-2 days Osei Lang DO [Doctor of Osteopathic Medicine] - 1-2 days
--- NOTE | 2021-08-14 18:47 | CT ---
EXAMINATION TYPE: CT chest angio for PE with contrast, with 3-D reconstruction renderings DATE OF EXAM: 08/14/2021 COMPARISON: 10/26/2019 HISTORY: SOB, hx of PE CT DLP: 661.1 mGycm Automated exposure control for dose reduction was used. CONTRAST: CT Chest for pulmonary embolism performed with with IV Contrast, patient injected with 100 mL of Isovue 370. FINDINGS: AIRWAYS AND LUNGS: The airways are unremarkable. The lungs are clear and well-expanded bilaterally. PLEURAL SPACES: Unremarkable. MEDIASTINUM: There is moderate contrast enhancement of the pulmonary artery and its branches, with no CT evidence for pulmonary embolism. No acute aortic findings. There are prominent left and right cor onary calcifications. There is no cardiomegaly. No pericardial effusion. No adenopathy OTHER: No additional significant abnormality is seen. IMPRESSION: 1. Negative for pulmonary embolism. 2. Prominent left and right coronary calcifications.
[2021-08-14 19:02] VITALS: BP 131/78; PULSE 68; RESP 19
== END 2021-08-14 19:00 | disposition home or self-care (01) ==
LOC: EC 13:22
DX: R06.00 Dyspnea, unspecified (principal); R53.1 Weakness; I10 Essential (primary) hypertension; Z87.891 Personal history of nicotine dependence; Z79.899 Other long term (current) drug therapy
CPT/HCPCS: 36415; 93005; 85379; 80053; 84484; 85025; 85610; 85730; 71046; 71275; 99285; Q9967

== ENCOUNTER → 2021-09-16 | Outpatient (CLI) | payer MEDICARE ==
[2021-09-16 19:35] LABS: INR 1.05 (0.90-1.11); Prothrombin Time 11.5 sec (9.9-11.9)
[2021-09-17 05:03] LABS: Cardiolipin Ab IgG Interp NEGATIVE (NEGATIVE); Cardiolipin Ab IgM Interp NEGATIVE (NEGATIVE); Cardiolipin IgA Antibody <2.0 U/mL; Cardiolipin IgM Antibody <1.5 U/mL
[2021-09-17 12:01] LABS: APTT 57 Sec(s) (<43); APTT 1:1 Mix 46 Sec(s) (<43); DRVVT 1:1 Mix 48 Sec(s) (<44); DRVVT Confirmation Positive (Negative); Dilute Russell Viper Venom 67 Sec(s) (<44); Hexagonal Phase Neutralization Negative (Negative)
== END | disposition home or self-care (01) ==
LOC: LABWHC1 10:04
PROVIDERS: ATTEND Internal Medicine Critical Care Medicine
DX: Z86.711 Personal history of pulmonary embolism (principal)
CPT/HCPCS: 36415; 81240; 81241; 81291; 85300; 85303; 85306; 85610; 85613; 85730; 86147

== ENCOUNTER → 2021-10-14 | Outpatient (CLI) | payer MEDICARE ==
[2021-10-14 14:46] LABS: ALT 35 U/L (10-49); AST 26 U/L (14-35); Chol/HDL Ratio 2.67 Ratio; LDL Cholesterol,Calculated 43.1 mg/dL (0.0-131.0)
== END | disposition home or self-care (01) ==
LOC: LABWHC1 09:11
PROVIDERS: ATTEND Nurse Practitioner Adult Health
DX: E78.2 Mixed hyperlipidemia (principal)
CPT/HCPCS: 36415; 80061; 84450; 84460

== ENCOUNTER → 2022-10-12 | Outpatient (CLI) | payer MEDICARE ==
[2022-10-12 10:13] LABS: African American GFR (CKD) >90 (>60 ml/min/1.73 sqM); Blood Urea Nitrogen 13 mg/dL (9-20); Non-African American GFR(CKD) 89 (>60 ml/min/1.73 sqM)
--- NOTE | 2022-10-12 21:21 | CT ---
EXAMINATION TYPE: CT angio chest DATE OF EXAM: 10/12/2022 COMPARISON: 04/14/2021 HISTORY: THORACIC AORTA ANEURYSM CT DLP: 1284 mGycm, Automated exposure control for dose reduction was used. CONTRAST: Performed injected with 100 mL of Isovue 370. TECHNIQUE: Axial images were obtained at 5 mm thick sections. Reconstructed images are reviewed on [employer] computer in the coronal plane. FINDINGS: Portion of the thyroid visualized is normal. No suspicious lung nodules or focal infiltrates are present. No enlarged mediastinal or hilar adenopathy is evident. The ascending aorta diameter at the level o f the main pulmonary artery is 4.2 cm. This previously measured 4.0 cm 2020. The main pulmonary hood ry diameter at the bifurcation is 2.9 cm. Aorta tapers to the aortic arch to the diaphragm. 3 reconstructed images performed separately by the technologist are reviewed. There is three-vessel a rch. Renal arteries appear normal. Superior mesenteric artery and celiac axis appear normal. Limited CT sections are obtained through the upper abdomen. Abdomen is essentially unremarkable. IMPRESSIONS: 1. Ascending thoracic aorta measures 4.2 cm, previous measurement 4.0 cm.
== END | disposition home or self-care (01) ==
LOC: RADCTMAIN 09:29
PROVIDERS: ATTEND Internal Medicine Interventional Cardiology
DX: I71.21 Aneurysm of the ascending aorta, without rupture (principal)
CPT/HCPCS: 82565; 84520; 71275; 36415; Q9967

== ENCOUNTER → 2023-10-11 | Outpatient (CLI) | payer MEDICARE ==
[2023-10-11 11:27] LABS: African American GFR (CKD) >90 (>60 ml/min/1.73 sqM); Blood Urea Nitrogen 20 mg/dL (9-20); Non-African American GFR(CKD) 86 (>60 ml/min/1.73 sqM)
--- NOTE | 2023-10-11 12:53 | CT ---
CTA CHEST EXAMINATION TYPE: CT angio chest DATE OF EXAM: 10/11/2023 INDICATION: Thoracic aortic aneurysm w/out rupture follow up CT DLP: 1317.60 mGycm, Automated exposure control for dose reduction was used. CONTRAST: Patient injected with 100 mL of Isovue 370. COMPARISON: 10/12/2022 TECHNIQUE: CT of the chest is performed on a spiral scan at 2 mm thick sections. Study is performed with intravenous contrast timed for evaluation for aortic aneurysm. This will limit additional porti ons of the evaluation. 3-D MIP images reconstructed by the technologist are reviewed on the computer in the coronal and sagittal planes. FINDINGS: No persistent filling defects are evident to suggest an acute pulmonary embolism. No mediastinal or hilar adenopathy enlarged by CT criteria is evident. The ascending aorta diameter at the level of the main pulmonary artery is 4.4 cm. Previous measuremen t 4.2 cm. Aortic root measures 3.4 cm. Descending thoracic aorta at the level of the diaphragm is 2.7 cm. Aortic arch transverse dimension is 3.2 cm. The main pulmonary artery diameter at the bifurcatio n is 3.2 cm. Coronary artery calcification is present. Lung windows are clear. Limited CT sections were through the upper abdomen. Upper abdomen appears unremarkable. IMPRESSION: 1. Ascending thoracic aortic aneurysm of 4.4 cm increased from 4.2 cm previous exam.
== END | disposition home or self-care (01) ==
LOC: RADCTMAIN 10:48
PROVIDERS: ATTEND Internal Medicine Interventional Cardiology
DX: I71.21 Aneurysm of the ascending aorta, without rupture (principal)
CPT/HCPCS: 82565; 84520; 71275; 36415; Q9967

== ENCOUNTER → 2024-11-03 | Outpatient (CLI) | payer MEDICARE ==
[2024-11-03 10:52] LABS: African American GFR (CKD) >90 (>60 ml/min/1.73 sqM); Blood Urea Nitrogen 14 mg/dL (9-20); Non-African American GFR(CKD) >90 (>60 ml/min/1.73 sqM)
--- NOTE | 2024-11-03 17:09 | CT ---
EXAMINATION TYPE: CT angio chest DATE OF EXAM: 11/03/2024 11:50 AM COMPARISON: 10/11/2023 CLINICAL INDICATION: Male, 69 years old with history of I71.20 THORACIC AORTIC ANEURYSM, WITHOUT RUPT URE,; Thoracic aortic aneurysm w/o rupture. TECHNIQUE/CONTRAST: Initial CT scan of the chest without IV contrast. Coronal and sagittal reconstructions performed. Subsequent CTA scan with IV Contrast, patient injected with 100 ml mL of Isovue 370, rotational 3-D r econstructions generated on a dedicated independent workstation. CT DLP: 933 mGycm, Automated exposure control for dose reduction was used. FINDINGS: The heart is normal size without pericardial effusion. LAD and RCA coronary calcifications are presen t. Mild aortic valve calcifications. Similar ectatic aortic root at 3.7 cm. Mild aneurysm ascending aorta 4.3 cm versus 4.5 cm, previously. Conventional arch vessel branching anatomy. Upper descending thoracic aorta ectatic at 3.3 cm Ectatic lower descending thoracic aorta 2.7 cm, unchanged. No evidence for acute intramural hematoma. No evidence for aortic dissection. Large caliber main right and left pulmonary arteries up to 2.9 cm suggests underlying pulmonary arter ial hypertension. No thoracic lymphadenopathy by CT size criteria. Lungs show no consolidation or pleural effusion. Tiny hiatal hernia. Visualized upper abdomen shows tiny hilar splenule. Bones: Extensive DISH throughout the mid and lower thoracic spine. ACDF hardware partially visualized . IMPRESSION: 1. Mildly aneurysmal ascending aorta 4.3 cm, not significantly changed versus 4.5 cm, previously. Wit hin margin of measurement error. 2. LAD and RCA coronary calcifications. Correlate for underlying pulmonary arterial hypertension. 3. Extensive DISH throughout the mid and lower thoracic spine. [facility], , 11/03/2024 5:07 PM
== END | disposition home or self-care (01) ==
LOC: RADCTMAIN 10:04
PROVIDERS: ATTEND Internal Medicine Interventional Cardiology
DX: I77.810 Thoracic aortic ectasia (principal); M51.34 Other intervertebral disc degeneration, thoracic region
CPT/HCPCS: 82565; 84520; 71275; 36415; Q9967